=== PATIENT | male | born 1955 | race Caucasian/White ===

== ENCOUNTER → 2018-06-02 | Outpatient (CLI) | payer OTHER, MEDICARE | LOC: M PAIN 13:15 | DX: M47.812 Spondylosis without myelopathy or radiculopathy, cervical region (principal); M79.1 Myalgia; E78.5 Hyperlipidemia, unspecified; K21.9 Gastro-esophageal reflux disease without esophagitis; M19.90 Unspecified osteoarthritis, unspecified site; Z79.899 Other long term (current) drug therapy; Z96.611 Presence of right artificial shoulder joint | CPT/HCPCS: G0463 ==

== ENCOUNTER → 2018-06-30 | Outpatient (CLI) | payer OTHER, MEDICARE ==
[~2018-06-30] MED LIST: BUPIVACAINE HCL 0.25% 30 ML VIAL As Ordered; ISOVUE-M 300 61% 15ML VIAL (Q9967) As Ordered; LIDOCAINE 1% SDV INJ 30 ML VIAL As Ordered; MIDAZOLAM INJ 2 MG/2 ML VIAL (J2250) As Ordered; TRIAMCINOLONE ACETONIDE SUSP 40 MG/ML VIAL (J3301) As Ordered; fentaNYL 100 MCG/2 ML INJECTION (J3010) As Ordered
== END ==
LOC: M PAIN 11:15
DX: M47.812 Spondylosis without myelopathy or radiculopathy, cervical region (principal); E78.5 Hyperlipidemia, unspecified; K21.9 Gastro-esophageal reflux disease without esophagitis; M19.90 Unspecified osteoarthritis, unspecified site; N40.0 Benign prostatic hyperplasia without lower urinary tract symptoms; Z79.899 Other long term (current) drug therapy
CPT/HCPCS: J3301

== ENCOUNTER → 2018-07-16 | Outpatient (CLI) | payer OTHER, MEDICARE | LOC: M PAIN 13:30 | DX: M47.812 Spondylosis without myelopathy or radiculopathy, cervical region (principal); M79.18 Myalgia, other site; E78.5 Hyperlipidemia, unspecified; K21.9 Gastro-esophageal reflux disease without esophagitis; N40.0 Benign prostatic hyperplasia without lower urinary tract symptoms; Z96.653 Presence of artificial knee joint, bilateral; Z79.899 Other long term (current) drug therapy | CPT/HCPCS: G0463 ==

== ENCOUNTER → 2018-07-29 | Outpatient (CLI) | payer OTHER, MEDICARE ==
[~2018-07-29] MED LIST changes: -ISOVUE-M 300 61% 15ML VIAL (Q9967) As Ordered; -LIDOCAINE 1% SDV INJ 30 ML VIAL As Ordered; -MIDAZOLAM INJ 2 MG/2 ML VIAL (J2250) As Ordered; +diazePAM 5 MG TAB As Ordered; -fentaNYL 100 MCG/2 ML INJECTION (J3010) As Ordered; +oxyCODONE 5MG TAB As Ordered
== END ==
LOC: M PAIN 10:45
DX: M79.18 Myalgia, other site (principal); M54.6 Pain in thoracic spine; E78.5 Hyperlipidemia, unspecified; K21.9 Gastro-esophageal reflux disease without esophagitis; M06.9 Rheumatoid arthritis, unspecified; Z96.653 Presence of artificial knee joint, bilateral
CPT/HCPCS: J3301

== ENCOUNTER → 2018-08-13 | Outpatient (CLI) | payer OTHER, MEDICARE | LOC: M PAIN 10:00 | DX: M47.812 Spondylosis without myelopathy or radiculopathy, cervical region (principal); M79.18 Myalgia, other site; E78.5 Hyperlipidemia, unspecified; K21.9 Gastro-esophageal reflux disease without esophagitis; N40.0 Benign prostatic hyperplasia without lower urinary tract symptoms; M19.90 Unspecified osteoarthritis, unspecified site; Z96.653 Presence of artificial knee joint, bilateral; Z79.899 Other long term (current) drug therapy | CPT/HCPCS: G0463 ==

== ENCOUNTER → 2018-09-17 | Outpatient (CLI) | payer OTHER, MEDICARE ==
[~2018-09-17] MED LIST changes: +AVEL1TAB3 PO; -BUPIVACAINE HCL 0.25% 30 ML VIAL As Ordered; +BUPIVACAINE HCL 0.25% 30 ML VIAL As Ordered ONE; +HYDROCODONE OR; +ISOVUE-M 300 61% 15ML VIAL (Q9967) As Ordered ONE; +LIDO5DIS EX; +LIDOCAINE 1% SDV INJ 30 ML VIAL As Ordered ONE; +MIDAZOLAM INJ 2 MG/2 ML VIAL (J2250) As Ordered ONE; +NABU750T OR; +NAPR-49 PO; +PEPC40TA OR; +TRAM50TA2 OR; -TRIAMCINOLONE ACETONIDE SUSP 40 MG/ML VIAL (J3301) As Ordered; +TRIAMCINOLONE ACETONIDE SUSP 40 MG/ML VIAL (J3301) As Ordered ONE; -diazePAM 5 MG TAB As Ordered; +fentaNYL 100 MCG/2 ML INJECTION (J3010) As Ordered ONE; -oxyCODONE 5MG TAB As Ordered; +pennsaid TD
--- NOTE | 2018-09-17 14:25 | REP ---
Limited cervical spine series: Single view. History: Cervical facet block for pain. 36 seconds of fluoroscopy time is reported. Findings: A single last image hold fluoroscopically obtained intraprocedural spot radiograph of the cervical spine documents various needle positions and contrast injections associated with cervical spine facet injection procedure. Electronically Signed by Josh Smith MD 09/17/2018 07:47 P
--- NOTE | 2018-10-07 00:09 | ECWPNPC ---
PATIENT NAME: CALLUM FERRER : 1955 GENDER: MALE VISIT DATE: 09/17/2018 DISCHARGE DATE: 09/17/18 1205 VISIT LOCKED DATE TIME: PHYSICIAN: JONATHON HERNANDES MD RESOURCE: JONATHON HERNANDES MD REASON FOR APPOINTMENT 1. BILATERAL CERVICAL FACET BLOCK AT C7-T1 AND T1-T2 HISTORY OF PRESENT ILLNESS DEPRESSION SCREENING: PHQ-2 IN LAST TWO WEEKS HAVE YOU BEEN BOTHERED BY LITTLE INTEREST OR PLEASURE IN DOING THINGSNO FEELING DOWN, DEPRESSED, OR HOPELESSNO HISTORY OF PRESENT ILLNESS: PAIN THE PATIENT DESCRIBES THE PAIN... FALL RISK SCREENING: SCREENING :NO FALLS IN THE PAST YEAR CURRENT MEDICATIONS TAKING PEPCID 10MG TABLET 1 TABLET P.O. 3-4 X/DAY, NOTES: 09-16-182099 TAKING CUSTOM DO NOT USE TRAMADOL 50 MG TABLET 1 TABS ORALLY EVERY 3-4 HOURS PRN/MDD#8, NOTES: 09-17-182099 TAKING TAMSULOSIN HCL 0.4 MG CAPSULE 1 CAPSULE ORALLY ONCE A DAY, NOTES: 2099 MEDICATION LIST REVIEWED AND RECONCILED WITH THE PATIENT PAST MEDICAL HISTORY HYPERLIPIDEMIA GERD OA ENLARGED PROSTATE NECK AND LOW BACK PAIN ALLERGIES N.K.D.A. SURGICAL HISTORY RIGHT SH REPLACEMENT LEFT SH SCOPE CA CHEST 1999 BILATERAL CARPAL TUNNEL REPAIR HIATAL HERNIA REPAIR LEFT TOTAL KNEE REPLACEMENT 2014 RIGHT TOTAL KNEE REPLACEMENT 2015 FAMILY HISTORY FATHER: MOTHER: 1 SISTER(S) - HEALTHY. 1 SON(S) - HEALTHY. GREW UP IN ORPHANAGE, UNSURE OF FAMILY MEDICAL HISTORYSON-ASTHMA. HOSPITALIZATION/MAJOR DIAGNOSTIC PROCEDURE SURGERIES REVIEW OF SYSTEMS REVIEWED BY: PROVIDER: . CONSTITUTIONAL: ANY CHANGE IN YOUR MEDICAL CONDITION? NO . CHILLS NO . FEVER NO . INFECTION: DO YOU HAVE NEW INFECTIONS? NO . DO YOU HAVE HISTORY OF MRSA? NO . MUSCULOSKELETAL: ANY NEW PATTERNS OF PAIN OR NUMBNESS? NO . GASTROENTEROLOGY: ANY NEW CHANGE IN BOWEL CONTROL? NO . GENITOURINARY: ANY NEW CHANGE IN BLADDER CONTROL? NO . IS THERE A CHANCE YOU COULD BE ? NO . HEMATOLOGY/LYMPH: DO YOU TAKE ANY BLOOD THINNERS? (FOR EXAMPLE- COUMADIN, PLAVIX, AGGRENOX, PLATEL, PRADAXA, OR XARELTO) NO . WHEN WAS YOUR LAST DOSE? DATE: TIME: . NEUROLOGY: HAVE YOU FALLEN IN THE PAST 6 MONTHS? NO . ANY NEW EXTREMITY NUMBNESS OR WEAKNESS? NO . CARDIOLOGY: DO YOU HAVE A PACEMAKER OR DEFIBRILLATOR? NO . RESPIRATORY: HAVE YOU BEEN SICK IN THE PAST WEEK? NO . FEVER NO . FLU LIKE SYMPTOMS? NO . COUGH NO . INTEGUMENTARY: DO YOU HAVE ANY RASHES OR OPEN SORES? NO . ALLERGIC/IMMUNO: ARE YOU ALLERGIC TO SHELLFISH OR IV DYE? NO . ANY NEW ALLERGIES? NO . PSYCHIATRIC: DO YOU HAVE THOUGHTS OF HURTING YOURSELF OR SOMEONE ELSE? NO . ARE YOU ABUSED, NEGLECTED, OR IN AN UNSAFE ENVIRONMENT? NO . ENDOCRINOLOGY: ARE YOU DIABETIC? NO . OTHER: DO YOU NEED ANY PRESCRIPTIONS? NO . IF YES, PLEASE LIST: ____ . ANY NEW PROBLEMS WITH YOUR MEDICATIONS? NO . WHEN DID YOU LAST EAT? ____8 PM LAST NIGHT . WHEN DID YOU LAST DRINK? ____8 PM LAST NIGHT . WHAT DID YOU LAST DRINK? ____WATER . NAME OF PERSON DRIVING YOU HOME? ____LINDA . DO YOU HAVE ANY OTHER QUESTIONS OR CONCERNS NO . VITAL SIGNS WT 192 LBS, HT 72 IN, BMI 26.04 INDEX, BP 127/68 MM HG, HR 116 /MIN, RR 18 /MIN, TEMP 97.6 F, OXYGEN SAT % 93%, SAFE IN ENV? (Y/N) YES, NA INITIALS SC 09:07, REVIEWED BY: KG. ASSESSMENTS SPONDYLOSIS OF CERVICAL REGION WITHOUT MYELOPATHY OR RADICULOPATHY - M47.812 (PRIMARY) PROCEDURES PN CERVICAL FACET BLOCK LOW BILATERAL CERVICAL PRE PROCEDURE DIAGNOSIS CERVICAL SPONDYLOSIS POST PROCEDURE DIAGNOSIS CERVICAL SPONDYLOSIS PROCEDURE BILATERAL C5-6 AND BILATERAL C6-7 CERVICAL THERAPEUTIC FACET BLOCK SURGEON DR. JONATHON HERNANDES WEB ART DIRECTOR NONE ANESTHESIA LOCAL WITH IV SEDATION PRE PROCEDURE NOTE PATIENT WITH A HISTORY OF CHRONIC CERVICAL PAIN. I EVALUATED THE PATIENT AND REVIEWED THE CHART. I WENT OVER THE RISKS, ALTERNATIVES, AND BENEFITS ASSOCIATED WITH THIS PROCEDURE. PATIENT WOULD LIKE TO MOVE FORWARD WITH IV SEDATION DUE TO DISCOMFORT, PAIN AND ANXIETY ASSOCIATED WITH THE PROCEDURE. THE PATIENT WOULD LIKE TO PROCEED AND GAVE CONSENT TO PERFORM THE PROCEDURE. THE PATIENT DENIES UNEXPLAINABLE WEIGHT LOSS, FEVER, CHILLS, OR NEW CHANGES IN URINARY OR BOWEL CONTROL DESCRIPTION OF PROCEDURE THE PATIENT WAS BROUGHT TO THE PROCEDURE ROOM AND PLACED IN THE PRONE POSITION. THE CERVICOTHORACIC AREA WAS CLEANED WITH CHLORAPREP SOLUTION AND DRAPED ASEPTICALLY. THE PROCEDURE WAS DONE UNDER STERILE CONDITIONS. I CHECKED LATERALITY AND THE LEVEL WHERE THE PROCEDURE WAS GOING TO BE PERFORMED WITH THE PATIENT AND THE SUPPORTING STAFF AT THE MOMENT OF THE TIME OUT IN THE PROCEDURE ROOM. UNDER FLUOROSCOPIC GUIDANCE, TARGET POINT WAS SELECTED AT THE RIGHT AND LEFT C5-6 AND RIGHT AND LEFT C6-7. TARGET POINTS WERE SELECTED AFTER LATERAL ROTATION AND TILT OF THE MAGNIFIER OF THE C-ARM. LIDOCAINE 0.5% WAS USED TO NUMB THE SKIN AND THE SUBCUTANEOUS TISSUE BELOW IT. SPINAL NEEDLES, 22-GAUGE, WERE ADVANCED UNDER FLUOROSCOPIC GUIDANCE AND FOLLOWING PATIENT FEEDBACK UNTIL THE TARGETS WERE TOUCHED. THE POSITION OF THE NEEDLES WAS VERIFIED WITH AP AND LATERAL VIEWS. AFTER PROPER POSITION OF THE NEEDLES WAS ACHIEVED, ISOVUE M DYE 30, 0.1 ML WAS INJECTED SHOWING SPREAD OF THE DYE. THEN A SOLUTION OF 0.9 ML OF BUPIVACAINE 0.125% AND KENALOG 10 MG WAS INJECTED AT EACH SITE. PATIENT RECEIVED VERSED 4 MG AND FENTANYL 200 MCG IV DIVIDED DOSES. THERE WAS NO EVIDENCE OF BLOOD, PARESTHESIA OR CEREBROSPINAL FLUID DURING THE PROCEDURE. THE PATIENT WAS SENT TO THE RECOVERY ROOM. THE PATIENT WAS MOVING THE EXTREMITIES AND DOING WELL. THERE WAS NO COMPLICATION DURING THE PROCEDURE. FLUOROSCOPY TIME WAS 36 SECONDS. FACE TO FACE TIME WAS 24 MINUTES POST PROCEDURE NOTE THE PATIENT WILL BE SEEN IN A FOLLOW UP IN THE NEXT FEW WEEKS. INSTRUCTIONS WERE GIVEN, QUESTIONS WERE ANSWERED, AND THE PATIENT EXPRESSED UNDERSTANDING AND AGREED WITH THE PLAN. I, ZEKE BRUSH, DOCUMENTED THE ABOVE INFORMATION ACTING A SCRIBE FOR DR. HERNANDES. I HAVE REVIEWED THE ABOVE DOCUMENT, WRITTEN BY ZEKE BUSTAMANTEIBAngella AND I VERIFY THAT IT IS ACCURATE DIAGNOSTIC IMAGING [facility] FACET BLOCK (PAIN)[id number] PROCEDURE CODES 6045F RADXPS IN END [id number] PXD 66959 INJ PARAVERT F JNT C/T 1 LEV, MODIFIERS: 50 [id number] INJ PARAVERT F JNT C/T 2 LEV, MODIFIERS: 50 00413 MOD SED SAME PHYS/QHP 5/>YRS 47721 MOD SED SAME PHYS/QHP EA DISPOSITION & COMMUNICATION FOLLOW UP 3 WEEKS ELECTRONICALLY SIGNED BY JONATHON HERNANDES MD, MD ON 10/06/2018 AT 05:16 PM EST DISCLAIMER : THIS IS A VISIT SUMMARY EXTRACTED FROM THE [facility]INK CHART. IT IS NOT A COPY OF THE [facility] PROGRESS NOTE. MTDD
== END ==
LOC: M PAIN 08:45
PROVIDERS: ATTEND Anesthesiology
DX: M47.812 Spondylosis without myelopathy or radiculopathy, cervical region (principal); E78.5 Hyperlipidemia, unspecified; K21.9 Gastro-esophageal reflux disease without esophagitis; M19.90 Unspecified osteoarthritis, unspecified site; Z96.653 Presence of artificial knee joint, bilateral; Z79.899 Other long term (current) drug therapy
CPT/HCPCS: 64490; 64491; 99152; 99153; J2250; J3010; J3301; Q9967

== ENCOUNTER 2018-10-02 18:29 | Emergency (ER) | payer OTHER, MEDICARE ==
[~2018-10-02] VITALS: Ht 180.3 cm; Wt 84.1 kg
[~2018-10-02 18:29] MED LIST changes: -AVEL1TAB3 PO; -BUPIVACAINE HCL 0.25% 30 ML VIAL As Ordered ONE; -ISOVUE-M 300 61% 15ML VIAL (Q9967) As Ordered ONE; -LIDOCAINE 1% SDV INJ 30 ML VIAL As Ordered ONE; -MIDAZOLAM INJ 2 MG/2 ML VIAL (J2250) As Ordered ONE; -NAPR-49 PO; -TRIAMCINOLONE ACETONIDE SUSP 40 MG/ML VIAL (J3301) As Ordered ONE; -fentaNYL 100 MCG/2 ML INJECTION (J3010) As Ordered ONE
[2018-10-02 18:31] VITALS: BP 115/64
--- NOTE | 2018-10-02 18:47 | ECGEPIP ---
Stationary ECG Study [facility] - ED Test Date: 2018-10-02 Pat Name: CALLUM FERRER Department: Room: - Gender: M Motion Study Analyst: : 1955 Requested By: Africa Gasca Order Number: [id number] Reading MD: Pillo Ba Measurements Intervals [place] Rate: 120 P: 20 UT: 145 QRS: 8 QRSD: 82 T: 18 QT: 301 QTc: 427 Interpretive Statements SINUS TACHYCARDIA NO PRIORS FOR COMPARISON Electronically Signed On 10-02-2018 18:47:28 EST by Pillo Ba
[2018-10-02 18:58] LABS: BASO % 0.1 % (0.0-1.0); EOS # 0.1 10^3/uL (0.0-0.50); EOS % 0.4 % (0.0-3.0); HEMOGLOBIN 15.6 g/dl (13.5-17.5); LYMPH # 2.6 10^3/uL (1.5-4.5); LYMPH % 21.4 % (24.0-44.0); MEAN CORPUSCULAR HEMOGLOBIN 31.5 pg (27.0-33.0); MEAN CORPUSCULAR HGB CONC 34.7 g/dl (32.0-36.5); MEAN CORPUSCULAR VOLUME 90.7 fl (80.0-96.0); MONO # 1.2 10^3/uL (0.0-0.8); MONO % 10.3 % (0.0-5.0); NEUTROPHILS # 8.1 10^3/uL (1.8-7.7); NEUTROPHILS % 67.5 % (36.0-66.0); PLATELET COUNT, AUTOMATED 255 10^3/uL (150-450); RED BLOOD COUNT 4.96 10^6/uL (4.30-6.10)
[2018-10-02 19:14] LABS: INR 1.16
[2018-10-02 19:28] LABS: ALBUMIN 3.4 GM/DL (3.2-5.2); ALT/SGPT 20 U/L (12-78); BILIRUBIN,DIRECT 0.2 MG/DL (0.0-0.2); BILIRUBIN,TOTAL 1.1 MG/DL (0.2-1.0); BLOOD UREA NITROGEN 17 MG/DL (7-18); CALCIUM LEVEL 9.8 MG/DL (8.8-10.2); CARBON DIOXIDE LEVEL 28 MEQ/L (21-32); CHLORIDE LEVEL 101 MEQ/L (98-107); CK-MB VALUE MASS < 1.0 NG/ML (<3.6); CPK CREATINE PHOSPHOKINASE 24 U/L (39-308); FREE T4 1.17 NG/DL (0.76-1.46); GLOMERULAR FILTRATION RATE 59.2 (>49); GLUCOSE, FASTING 111 MG/DL (70-100); LIPASE 111 U/L (73-393); MB/CK RELATIVE INDEX 4.17 (< OR =4); SODIUM LEVEL 138 MEQ/L (136-145); THYROID STIMULATING HORMONE 0.833 uIU/ML (0.358-3.740); TOTAL PROTEIN 7.4 GM/DL (6.4-8.2); TROPONIN I < 0.02 NG/ML (< 0.10)
[2018-10-02] MEDS ORDERED: ISOVUE-370 76% 100ML VIAL (Q9967) As Ordered ONE (19:29)
--- NOTE | 2018-10-02 19:37 | REP ---
Clinical: Chest pain. Comparison: 05/15/2013. Findings: Mediastinum and cardiac silhouette are normal. Lung vega demonstrate chronic interstitial changes suggesting fibrosis and remains similar to prior examination. Subtle superimposed acute process cannot be excluded. No obvious effusion. No pneumothorax. Skeletal structures stable. Impression: Fibrosis and chronic interstitial changes similar to 2013. Subtle superimposed atelectasis/infiltrate cannot be excluded. Electronically Signed by Bonilla Rangel MD 10/02/2018 07:28 P
--- NOTE | 2018-10-02 19:56 | REP ---
Clinical: Acute chest pain. Technique: Axial contrast enhanced images from the thoracic inlet to the upper abdomen using 100 ml Isovue 370 intravenous contrast material with coronal and sagittal re-formations. Findings: Satisfactory enhancement of the pulmonary vasculature is achieved and no filling defects are identified to suggest pulmonary embolus. Chronic interstitial changes are appreciated. Superimposed bibasilar atelectasis/consolidations, with lingular and right middle lobe infiltrates represent superimposed acute processes. No effusion. No significant adenopathy. Mediastinum demonstrates moderate hiatal hernia. Thoracic aorta without aneurysm or dissection. Atherosclerotic changes to the coronary arteries noted without cardiomegaly or pericardial effusion. Musculoskeletal structures are intact. Impression: No evidence for pulmonary embolus. Multifocal atelectasis/consolidations and infiltrates. Electronically Signed by Bonilla Rangel MD 10/02/2018 07:48 P
[2018-10-02] MEDS ORDERED: AVEL1TAB3 PO (20:22)
[2018-10-02] MEDS ORDERED: NAPR-50 PO (20:22)
--- NOTE | 2018-10-03 07:34 | ED PDOC ---
Post-Departure Follow-Up radiology re[ort faxed to Africa Pepe MD Oct 03, 2018 07:34
== END 2018-10-02 20:53 | disposition home or self-care (01) ==
LOC: M ED 18:29
DX: J98.11 Atelectasis (principal); R07.89 Other chest pain; Z86.711 Personal history of pulmonary embolism; Z79.899 Other long term (current) drug therapy; Z88.5 Allergy status to narcotic agent; Z88.8 Allergy status to other drugs, medicaments and biological substances
CPT/HCPCS: 36415; 71045; 71275; 80048; 80076; 82550; 82553; 83690; 84439; 84443; 84484; 85025; 85610; 85730; 93005; 93041; 94760; 99284; Q9967

== ENCOUNTER → 2018-10-13 | Outpatient (CLI) | payer OTHER, MEDICARE ==
[~2018-10-13] MED LIST changes: +AVEL1TAB3 PO; +ELIQ5TAB PO; +FLOM0.4C39 PO; +NAPR-50 PO; +TRAM50TA2 PO
--- NOTE | 2018-11-02 01:18 | ECWPNPC ---
PATIENT NAME: CALLUM FERRER : 1955 GENDER: MALE VISIT DATE: 10/13/2018 DISCHARGE DATE: 10/13/18 1556 VISIT LOCKED DATE TIME: PHYSICIAN: LAWSON CHEUNG RESOURCE: LAWSON CHEUNG REASON FOR APPOINTMENT 1. SW PT- POST PROC HISTORY OF PRESENT ILLNESS HISTORY OF PRESENT ILLNESS: HERE FOR F/U OF CHRONIC NECK PAIN AND INTERMITTENT ARM AND HAND PARATHESIAS.HAD CERVICAL FACET BLOCK ON C5/6-C6/7 THERAPEUTIC.REPORTING >50% IMPROVEMENT IN PAIN THAT CONTINUES TODAY.HAD SOME DIFFICULTY WITH IV SEDATION AT LAST PROCEDURE.DR. HERNANDES CAME IN TO SEE PATIENT.HE IS SUGGESTING OR FOR FUTURE PROCEDURES. PAIN THE PATIENT DESCRIBES THE PAIN... FALL RISK SCREENING: SCREENING :NO FALLS IN THE PAST YEAR CURRENT MEDICATIONS TAKING PEPCID 10MG TABLET 1 TABLET P.O. 3-4 X/DAY, NOTES: [id number] TAKING CUSTOM DO NOT USE TRAMADOL 50 MG TABLET 1 TABS ORALLY EVERY 3-4 HOURS PRN/MDD#8, NOTES: 09-17-182099 TAKING TAMSULOSIN HCL 0.4 MG CAPSULE 1 CAPSULE ORALLY ONCE A DAY, NOTES: 2099 MEDICATION LIST REVIEWED AND RECONCILED WITH THE PATIENT PAST MEDICAL HISTORY HYPERLIPIDEMIA GERD OA ENLARGED PROSTATE NECK AND LOW BACK PAIN PNEUMONIA 09/22 ALLERGIES N.K.D.A. SURGICAL HISTORY RIGHT SH REPLACEMENT LEFT SH SCOPE CA CHEST 1999 BILATERAL CARPAL TUNNEL REPAIR HIATAL HERNIA REPAIR LEFT TOTAL KNEE REPLACEMENT 2014 RIGHT TOTAL KNEE REPLACEMENT 2015 FAMILY HISTORY FATHER: MOTHER: 1 SISTER(S) - HEALTHY. 1 SON(S) - HEALTHY. GREW UP IN ORPHANAGE, UNSURE OF FAMILY MEDICAL HISTORYSON-ASTHMA. SOCIAL HISTORY GENERAL: TOBACCO USE ARE YOU A:NONSMOKER ALCOHOL SCREENING DID YOU HAVE A DRINK CONTAINING ALCOHOL IN THE PAST YEAR?NO POINTS0 INTERPRETATIONNEGATIVE RECREATIONAL DRUG USE DRUG USE?NO CAFFEINE CAFFEINE USE?YES 1 CUP TEA/DAY MORMON [id number] NONE LANGUAGE LANGUAGES SPOKEN:TURKISH LEARNING BARRIERS / SPECIAL NEEDS BARRIERS TO LEARNING?NO HEARING IMPAIRED?NO VISION IMPAIRED?NO COGNITIVELY IMPAIRED?NO READINESS TO LEARN?YES LEARNING PREFERENCES?NO LEARNING CAPABILITIES PRESENT?YES EMOTIONAL BARRIERS?NO SPECIAL DEVICES?NO RECONSTRUCTIVE DENTIST NEEDED?NO DOMESTIC VIOLENCE DO YOU FEEL SAFE IN YOUR ENVIRONMENT?YES OCCUPATION: RETIRED. DIET: LOVES MILK, REGULAR. NEW PATIENT PAIN DIARY FROM 0-10, WHAT LEVEL IS YOUR PAIN TODAY?3 PAIN CLINIC PFS, CLERGY, PUBLIC HEALTH REFERRALS PFS REFERRAL NEEDED?NO CLERGY REFERRAL NEEDED?NO PUBLIC HEALTH REFERRAL NEEDED?NO HAS THE PATIENT BEEN EDUCATED REGARDING HIS/HER PLAN OF CARE?YES HAS THE PATIENT BEEN EDUCATED REGARDING PAIN, THE RISK FOR PAIN, THE IMPORTANCE OF EFFECTIVE PAIN MANAGEMENT, AND THE PAIN ASSESSMENT PROCESS?YES ADVANCE DIRECTIVE ADVANCE DIRECTIVE DISCUSSED WITH PATIENT:YES PT DOES NOT HAVE ANY ADVANCED DIRECTIVES, AND HE DECLINES INFORMATION ASSISTANCE ON HCP AT THIS TIME. 10/13/17 .REVIEWED 06/02/18 1355 LAS06/30/18 1400 REVIEWED WITH PT. ADREVIEWED 07/16/18 1400 LASREVIEWED WITH PT 08/13/18 1039 BVREVIEWED WITH PT 10/13/18 1500 LAS. HOSPITALIZATION/MAJOR DIAGNOSTIC PROCEDURE SURGERIES REVIEW OF SYSTEMS REVIEWED BY: PROVIDER: LAWSON AVALOS . CONSTITUTIONAL: ANY CHANGE IN YOUR MEDICAL CONDITION? NO . CHILLS NO . FEVER NO . INFECTION: DO YOU HAVE NEW INFECTIONS? PT REPORTS HE HAD PNEUMONIA/CHOSTOCHONDRITIS AFTER THE HOLIDAYS, RESOLVED WITH COURSE OF LEVAQUIN . DO YOU HAVE HISTORY OF MRSA? NO . MUSCULOSKELETAL: ANY NEW PATTERNS OF PAIN OR NUMBNESS? PT HAD BILATERAL CERVICAL FACET BLOCK 09/17, REPORTS GOOD RESULTS, BUT IS STARTING TO COME BACK, NOW RATES PAIN A 2 . GASTROENTEROLOGY: ANY NEW CHANGE IN BOWEL CONTROL? NO . GENITOURINARY: ANY NEW CHANGE IN BLADDER CONTROL? NO . IS THERE A CHANCE YOU COULD BE ? NO . HEMATOLOGY/LYMPH: DO YOU TAKE ANY BLOOD THINNERS? (FOR EXAMPLE- COUMADIN, PLAVIX, AGGRENOX, PLATEL, PRADAXA, OR XARELTO) NO . WHEN WAS YOUR LAST DOSE? DATE: TIME: . NEUROLOGY: HAVE YOU FALLEN IN THE PAST 6 MONTHS? PT REPORTS HE FELL HERE AFTER HIS LAST PROCEDURE, DENIES INJURY . ANY NEW EXTREMITY NUMBNESS OR WEAKNESS? NO . CARDIOLOGY: DO YOU HAVE A PACEMAKER OR DEFIBRILLATOR? NO . RESPIRATORY: HAVE YOU BEEN SICK IN THE PAST WEEK? YES PT REPORTS RECENT PNEUMONIA, TREATED WITH ANTIBIOTICS . FEVER NO . FLU LIKE SYMPTOMS? NO . COUGH NO . INTEGUMENTARY: DO YOU HAVE ANY RASHES OR OPEN SORES? NO . ALLERGIC/IMMUNO: ARE YOU ALLERGIC TO SHELLFISH OR IV DYE? NO . ANY NEW ALLERGIES? NO . PSYCHIATRIC: DO YOU HAVE THOUGHTS OF HURTING YOURSELF OR SOMEONE ELSE? NO . ARE YOU ABUSED, NEGLECTED, OR IN AN UNSAFE ENVIRONMENT? NO . ENDOCRINOLOGY: ARE YOU DIABETIC? NO . OTHER: DO YOU NEED ANY PRESCRIPTIONS? NO . IF YES, PLEASE LIST: ____ . ANY NEW PROBLEMS WITH YOUR MEDICATIONS? NO . WHEN DID YOU LAST EAT? ____ . WHEN DID YOU LAST DRINK? ____ . WHAT DID YOU LAST DRINK? ____ . NAME OF PERSON DRIVING YOU HOME? ____ . VITAL SIGNS WT 183.0 LBS, HT 72 IN, BMI 24.82 INDEX, BP 104/78 MM HG, HR 97%, RR 18 /MIN, TEMP 97.1 F, OXYGEN SAT % 97%, NA INITIALS AW 1452. EXAMINATION GENERAL EXAMINATION: PSYCHAFFECT FLAT, ALERT , ORIENTED X 3 . LUNGS:CLEAR TO AUSCULTATION BILATERALLY. HEART:HEART RATE REGULAR. MUSCULOSKELETAL:POINT TENDERNESS OVER BASE OF C-SPINE AND TRAPS BILAT.. NECK PAIN WITH NECK EXTENSION AND RAISING ARMS ABOVE SHOULDER HEIGHT. ALLIANCE MANAGER STRENTH EQUAL AND STRONG. . ASSESSMENTS SPONDYLOSIS OF CERVICAL REGION WITHOUT MYELOPATHY OR RADICULOPATHY - M47.812 (PRIMARY) TREATMENT SPONDYLOSIS OF CERVICAL REGION WITHOUT MYELOPATHY OR RADICULOPATHY NOTES: CONTINUE WITH HOME STRETCHING/EXCERSISE. PROCEDURE CODES FA211 ESTABILISHED PATIENT [facility] CHARGE DISPOSITION & COMMUNICATION FOLLOW UP 2 MONTHS ELECTRONICALLY SIGNED BY BAILEY RAMIREZ ON 11/01/2018 AT 12:08 PM EST DISCLAIMER : THIS IS A VISIT SUMMARY EXTRACTED FROM THE [employer] CHART. IT IS NOT A COPY OF THE [employer] PROGRESS NOTE. LIYA
== END ==
LOC: M PAIN 14:45
PROVIDERS: ATTEND Nurse Practitioner Family
DX: M47.812 Spondylosis without myelopathy or radiculopathy, cervical region (principal); G89.29 Other chronic pain; E78.5 Hyperlipidemia, unspecified; K21.9 Gastro-esophageal reflux disease without esophagitis; M19.90 Unspecified osteoarthritis, unspecified site; Z79.899 Other long term (current) drug therapy; Z96.653 Presence of artificial knee joint, bilateral

== ENCOUNTER 2018-10-29 11:46 | Inpatient (IN) | payer MEDICARE, MEDICAID ==
[~2018-10-29] VITALS: Ht 177.8 cm; Wt 82.5 kg
[~2018-10-29 11:46] MED LIST changes: -ELIQ5TAB PO; -FLOM0.4C39 PO; -TRAM50TA2 PO
[2018-10-29 12:23] LABS: BASO % 0.1 % (0.0-1.0); EOS % 0.1 % (0.0-3.0); HEMATOCRIT 44.5 % (42.0-52.0); HEMOGLOBIN 15.2 g/dl (13.5-17.5); LYMPH # 2.1 10^3/uL (1.5-4.5); LYMPH % 15.1 % (24.0-44.0); MEAN CORPUSCULAR HEMOGLOBIN 30.5 pg (27.0-33.0); MEAN CORPUSCULAR HGB CONC 34.2 g/dl (32.0-36.5); MEAN CORPUSCULAR VOLUME 89.4 fl (80.0-96.0); MONO # 1.4 10^3/uL (0.0-0.8); MONO % 9.6 % (0.0-5.0); NEUTROPHILS # 10.6 10^3/uL (1.8-7.7); NEUTROPHILS % 74.6 % (36.0-66.0); PLATELET COUNT, AUTOMATED 372 10^3/uL (150-450); RED BLOOD COUNT 4.98 10^6/uL (4.30-6.10); WHITE BLOOD COUNT 14.2 10^3/uL (4.0-10.0)
[2018-10-29 12:33] LABS: VENOUS BASE EXCESS 1.8 (-2.0-2.0); VENOUS HCO3 27.5 MEQ/L (23.0-27.0); VENOUS PARTIAL PRESSURE CO2 46.5 mmHg (38.0-50.0); VENOUS PARTIAL PRESSURE O2 47.4 mmHg (30.0-50.0); VENOUS PH 7.389 UNITS (7.330-7.430); VENOUS STANDARD HCO3 25.7 MEQ/L; VENOUS TOTAL CO2 28.9 MEQ/L (24.0-28.0)
[2018-10-29 12:40] LABS: INR 1.31; PROTHROMBIN TIME 16.5 SECONDS (12.1-14.4)
--- NOTE | 2018-10-29 12:54 | REP ---
Chest one-view HISTORY: Cough Comparison: 10/02/2018 An increase in interstitial markings is present in the lungs consistent with chronic interstitial fibrosis. The heart is normal in size. The pulmonary vasculature is normal in appearance. The patient is status post right shoulder arthroplasty. Impression: Chronic interstitial fibrosis. Electronically Signed by Dominick Silva MD 10/29/2018 12:45 P
[2018-10-29 13:02] LABS: ALT/SGPT 12 U/L (12-78); BILIRUBIN,DIRECT 0.2 MG/DL (0.0-0.2); BILIRUBIN,TOTAL 0.7 MG/DL (0.2-1.0); BLOOD UREA NITROGEN 12 MG/DL (7-18); CALCIUM LEVEL 9.6 MG/DL (8.8-10.2); CARBON DIOXIDE LEVEL 27 MEQ/L (21-32); CHLORIDE LEVEL 98 MEQ/L (98-107); CK-MB VALUE MASS < 1.0 NG/ML (<3.6); CPK CREATINE PHOSPHOKINASE 24 U/L (39-308); CREATININE FOR GFR 1.45 MG/DL (0.70-1.30); GLOMERULAR FILTRATION RATE 52.2 (>49); GLUCOSE, FASTING 148 MG/DL (70-100); MB/CK RELATIVE INDEX 4.17 (< OR =4); NT-PRO BNP 147 PG/ML (<125); POTASSIUM SERUM 4.1 MEQ/L (3.5-5.1); SODIUM LEVEL 136 MEQ/L (136-145); THYROID STIMULATING HORMONE 0.955 uIU/ML (0.358-3.740); TOTAL PROTEIN 7.7 GM/DL (6.4-8.2); TROPONIN I < 0.02 NG/ML (< 0.10)
[2018-10-29] MEDS ORDERED: NS 1,000 ML IV ONE ×2 (13:15→13:45)
[2018-10-29 15:09] LABS: D-DIMER QUANT > 4000 ng/ml (<500)
[2018-10-29] MEDS ORDERED: ISOVUE-370 76% 100ML VIAL (Q9967) As Ordered ONE (15:25)
[2018-10-29] MEDS ORDERED: TRAM50TA2 PO (15:32)
[2018-10-29] MEDS ORDERED: FLOM0.4C39 PO (15:32)
[2018-10-29] MEDS ORDERED: HEPARIN SOD (PORCINE) 5000 UNITS/ML VIAL IV ONE (16:00)
[2018-10-29] MEDS ORDERED: HEPARIN SOD (PORCINE) 5000 UNITS/ML VIAL IV PRN (16:00)
[2018-10-29] MEDS ORDERED: HEPARIN DRIP 25,000 UNITS in APPROPRIATE DILUENT 1 EA IV SCH (16:00)
[2018-10-29 16:20] LABS: PARTIAL THROMBOPLASTIN TIME 33.1 SECONDS (25.4-37.6)
[2018-10-29] MEDS ORDERED: NORCO, ANEXSIA 5/325MG TABLET (HYDROcodone/ACETAMINOPHEN) PO ONE ×2 (16:30→22:45)
--- NOTE | 2018-10-29 16:51 | REP ---
CT pulmonary angiogram: With IV contrast. History: Tachycardia and shortness of breath. Rule out pulmonary embolus. Comparison studies: Comparison CT study October 02, 2018. Contrast dose: 75 ML of Isovue [address] technique: Helical scanning is acquired and overlapping 1.5 mm and contiguous 3 mm axial images are reformatted. In addition, maximum intensity projection and multiplanar re-formation images are generated in sagittal and coronal imaging projections. CT pulmonary angiographic findings: There is good opacification of the pulmonary arterial tree. There are multiple filling defects in the lower and upper lobe pulmonary arterial tree consistent with pulmonary embolism on today's CT images. No central embolus is seen. This is a new finding. There is mild reflux of contrast opacified blood into the vena cava in the hepatic segment which may reflect right heart strain. The thoracic aorta enhances homogeneously without evidence of aneurysm or dissection. There is some vascular calcification in the left coronary artery distribution. There is subsegmental atelectatic change in the lower lobes bilaterally. There is an infiltrate in the posterior segment of the right upper lobe which is a peripheral pleural-based question right upper lobe pulmonary infarction. There is a small sliver of pleural fluid suspected bilaterally. There are surgical clips at the GE junction and there is evidence of a small sliding-type hiatal hernia. Visualized upper abdominal structures are unremarkable. No bony destructive lesion is seen. The patient is status post right humeral head replacement. Impression: Positive study for multiple bilateral pulmonary artery emboli. Possible right upper lobe pulmonary infarction. Contrast opacified blood refluxes into the intrahepatic vena cava which may reflect some degree of right heart strain. Hiatal hernia. Findings were telephoned to the referring provider at the time of the study. Electronically Signed by Josh Smith MD 10/29/2018 05:29 P
[2018-10-29] MEDS ORDERED: ACETAMINOPHEN TAB 650MG DOSE (2X325MG) PO PRN (17:00)
[2018-10-29] MEDS ORDERED: traMADol 50 MG TAB PO PRN ×2 (17:00→23:00)
[2018-10-29 21:00] VITALS: O2SAT 95
--- NOTE | 2018-10-29 21:01 | HPE ---
DATE OF ADMISSION: 10/29/2018 PRIMARY CARE PROVIDER: In [facility]. ATTENDING PHYSICIAN: Dr. Bangura CHIEF COMPLAINT: Chest pain. HISTORY OF PRESENT ILLNESS: The patient is a 63-year-old male who presented to the hospital for chest pain. History is provided by himself as well as his , who is with him in the emergency room (ER). Patient states he had a history of deep vein thrombosis (DVT) in his left lower extremity in 2013 after knee replacement. He was treated with a blood thinner for a few months and then stopped. He states he does not smoke cigarettes. There is no family history of blood clots. Back in 10/02/2018 he presented to the ER here for chest pain. His workup in the ER demonstrated he may have pneumonia. He was discharged home with oral prednisone as well as levofloxacin for treatment on pneumonia. He states after he took medications he was feeling a little bit better initially; however, his chest pain came back and was getting worse gradually. That is why he decided to come to the ER for followup evaluation today. Regarding his chest pain, it is located in the bilateral low chest wall and the worst pain is about 6/10 in severity chest pain. Any movement or coughing makes the pain worse. No radiation. In the ER, his workup demonstrated he has bilateral pulmonary embolism (PE) per CT angiogram of chest, so medicine service was called for admission. REVIEW OF SYSTEMS: Positive for low-grade fever but no headache, no blurry vision, no nausea, no vomiting. Positive pleuritic chest pain. Positive cough without phlegm. No abdominal pain. No diarrhea or constipation. No dysuria. No tingling, numbness, or weakness in the arms or lower extremities. All other systems reviewed were negative. PAST MEDICAL HISTORY: 1. Left lower extremity DVT in 2013. Happened after left knee replacement. 2. Chronic lower back pain. 3. Abdominal wall sebaceous cancer, status post surgery. 4. BPH. PAST SURGICAL HISTORY: 1. Bilateral knee replacement. 2. Bilateral carpal tunnel surgery. 3. Status post fundoplication for a hiatal hernia. 4. Bilateral shoulder surgery. ALLERGIES: No known drug allergies. MEDICATIONS: - Flomax 4 mg by mouth daily - tramadol as needed for pain SOCIAL HISTORY: Denies tobacco use. Denies alcohol abuse. Denies illicit drug abuse. He is full code. Is living with at home. FAMILY HISTORY: No family history of blood clots. PHYSICAL EXAMINATION: VITAL SIGNS: Temperature 98.3, heart rate 101, respiratory rate 18, blood pressure 111/75, oxygen saturation is 95% on 2 liters oxygen supplement. GENERAL: He is awake, alert, oriented times three. He is not in acute distress. HEENT: Atraumatic. Pupils equal, round, reactive to light. No jaundice. Extraocular muscles intact. Ears, nose, throat normal. Mouth: Mucosa dry. NECK: No jugular venous distention (JVD). No bruits. LUNGS: Clear. No wheezing. No crackles. HEART: S1, S2, regular. No murmur. Mild tachycardia. ABDOMEN: Soft. Bowel sounds positive. Nontender. Lower extremities: No edema, bilateral lower extremities. NEUROLOGIC: Nonfocal. SKIN: No rash. PSYCHOLOGIC: No acute psychosis. DIAGNOSTIC LABORATORIES: CBC with differential: WBC 14, hemoglobin and hematocrit 15/44, platelets 372. Sodium 136, potassium 4.1, chloride 98, bicarbonate 27, BUN 12, creatinine 1.4, glucose 148. Chest CT angiogram showed bilateral PE. IMPRESSION: 1. Acute pulmonary failure with hypoxia. 2. Acute bilateral pulmonary embolism. 3. History of BPH. 4. History of chronic low back pain. PLAN: Patient will be admitted to the progressive care unit (PCU). Will continue heparin drip. Will schedule echocardiogram. Will discuss with patient regarding further anticoagulant treatment plan.
[2018-10-29 21:24] VITALS: BP 138/91
[2018-10-29] MEDS ORDERED: KETOROLAC 30 MG/ML VIAL (J1885) IV PRN (22:00)
[2018-10-29 23:00] VITALS: O2SAT 97
[2018-10-29 23:58] VITALS: BP 105/65
[2018-10-30] VITALS (15 sets, daily range): BP systolic 102–132; BP diastolic 60–81; O2SAT 89–96
[2018-10-30 05:54] LABS: INR 1.45; PARTIAL THROMBOPLASTIN TIME 52.8 SECONDS (25.4-37.6); PROTHROMBIN TIME 17.9 SECONDS (12.1-14.4)
[2018-10-30 05:55] LABS: BLOOD UREA NITROGEN 10 MG/DL (7-18); CALCIUM LEVEL 8.8 MG/DL (8.8-10.2); CARBON DIOXIDE LEVEL 26 MEQ/L (21-32); CHLORIDE LEVEL 103 MEQ/L (98-107); CREATININE FOR GFR 1.02 MG/DL (0.70-1.30); GLOMERULAR FILTRATION RATE > 60.0 (>49); GLUCOSE, FASTING 89 MG/DL (70-100); POTASSIUM SERUM 4.2 MEQ/L (3.5-5.1); SODIUM LEVEL 137 MEQ/L (136-145)
[2018-10-30 06:00] LABS: HEMATOCRIT 37.2 % (42.0-52.0); MEAN CORPUSCULAR HEMOGLOBIN 30.3 pg (27.0-33.0); MEAN CORPUSCULAR HGB CONC 33.3 g/dl (32.0-36.5); PLATELET COUNT, AUTOMATED 295 10^3/uL (150-450); RED BLOOD COUNT 4.09 10^6/uL (4.30-6.10); WHITE BLOOD COUNT 13.2 10^3/uL (4.0-10.0)
[2018-10-30 06:04] LABS: HEMOGLOBIN 12.4 g/dl (13.5-17.5)
[2018-10-30] MEDS: HEPARIN SOD (PORCINE) 5000 UNITS/ML VIAL IV PRN (06:29)
[2018-10-30] MEDS: TAMSULOSIN 0.4 MG CAP PO SCH (08:34)
[2018-10-30] MEDS: PERCOCET 5MG/325MG TAB PO PRN ×2 (09:44→18:53)
[2018-10-30 09:56] LABS: CK-MB VALUE MASS < 1.0 NG/ML (<3.6); CPK CREATINE PHOSPHOKINASE 27 U/L (39-308); TROPONIN I < 0.02 NG/ML (< 0.10)
--- NOTE | 2018-10-30 10:31 | REP ---
CT thoracic spine without contrast. HISTORY: Back pain COMPARISON : None There is no acute fracture or subluxation. There is no disc bulge or herniation. Facets hypertrophy is present at the T9-10 through T12-L1 levels. The neural foramina are patent. There is loss of height of several mid and lower thoracic intervertebral discs. Anterior osteophytes are present in the mid and lower thoracic spine. Parenchymal densities are present in the lungs. IMPRESSION: 1. Degenerative change as described above. 2. There are parenchymal densities in the lungs. Please refer to CT angio chest date 10/29/2018. Electronically Signed by Dominick Silva MD 10/30/2018 10:23 A
--- NOTE | 2018-10-30 10:38 | ECGEPIP ---
Stationary ECG Study [facility] - ED Test Date: 2018-10-29 Pat Name: CALLUM FERRER Department: Room: - Gender: M Credit Front Office Developer: : 1955 Requested By: Africa Gasca Order Number: [id number] Reading MD: Africa Gasca Measurements Intervals [place] Rate: 126 P: 76 FL: 172 QRS: 40 QRSD: 84 T: 48 QT: 299 QTc: 434 Interpretive Statements SINUS TACHYCARDIA INDETERMINATE AXIS ABNORMAL RHYTHM ECG SIMILAR 10/02/18 Electronically Signed On 10-30-2018 10:37:53 EST by Africa Gasca
--- NOTE | 2018-10-30 10:52 | REP ---
Duplex extremity venous ultrasound: Bilateral lower extremity. History: Rule out DVT. Findings: The deep veins are anechoic and fully compressible from the groin to the popliteal fossa in the left and right lower extremity. Color flow imaging is homogeneous. Spectral Doppler interrogation demonstrates intact respiratory variation in flow and normal manual augmentation of flow. There is no evidence of deep vein thrombosis. Impression: Negative bilateral lower extremity duplex venous ultrasound. No evidence of deep vein thrombosis. Electronically Signed by Josh Smith MD 10/30/2018 10:44 A
[2018-10-30] MEDS: HEPARIN DRIP 25,000 UNITS in APPROPRIATE DILUENT 1 EA IV SCH (12:00)
[2018-10-30 13:00] LABS: INR 1.54; PROTHROMBIN TIME 18.7 SECONDS (12.1-14.4)
[2018-10-30 13:02] LABS: PARTIAL THROMBOPLASTIN TIME 66.9 SECONDS (25.4-37.6)
--- NOTE | 2018-10-30 14:18 | IPNPDOC ---
Text Note Date of Service The patient was seen on 10/30/18. NOTE Subjective: Patient states he has left mid back pain/thoracic region pain that started 4 days ago. He states his nonradiating. Denies any weakness in his extremities. States has chronic lower back pain. Objective: Vitals: (see below) General: No acute distress, laying comfortably in bed. HEENT: Moist mucous membranes. Neck: No JVD or lymphadenopathy Cardiac: Tachycardic. Regular rhythm., No murmurs Pulm: Diminished breath sounds at the bases b/l. No wheezing, rhonchi Abd: NT/ND + BS Ext: No edema or cyanosis Thoracic region tender to palpation more so on the left side. Labs (see below) Images: CTA chest on 10/29/18 Impression: Positive study for multiple bilateral pulmonary artery emboli. Possible right upper lobe pulmonary infarction. Contrast opacified blood refluxes into the intrahepatic vena cava which may reflect some degree of right heart strain. Hiatal hernia. CT thoracic spine on 10/30/18 There is no acute fracture or subluxation. There is no disc bulge or herniation. Facets hypertrophy is present at the T9-10 through T12-L1 levels. The neural foramina are patent. There is loss of height of several mid and lower thoracic intervertebral discs. Anterior osteophytes are present in the mid and lower thoracic spine. Parenchymal densities are present in the lungs. IMPRESSION: 1. Degenerative change as described above. 2. There are parenchymal densities in the lungs. Please refer to CT angio chest date 10/29/2018. Assessment/Plan 1. Acute hypoxic respiratory failure secondary to acute pulmonary embolism bilaterally, with likely right-sided heart strain. Patient initially presented hypotensive, tachycardic, hypoxic. Rate is better controlled, and the patient is no longer hypotensive. Status post IV fluids. On heparin drip. Echocardiogram pending. Given the extent of the pulmonary embolism, and questionable pulmonary infarction, Dr. Simms was consulted. We'll continue to monitor in PCU. states that she prefers Eliquis for anticoagulation and the patient is ready to be transitioned. 2. Left-sided thoracic/back pain - CT thoracic spine (see above). The pain may very well be secondary to the pulmonary embolism, however persistence, will obtain an MRI. Percocet and lidocaine patch for pain control. 3. History of chronic lower back pain. Strength intact. No alarming symptoms. 4. History of BPH continue Flomax 5. Acute kidney injury. Resolved. Status post IV fluids. Avoid nephrotoxins. 6. Leukocytosis likely secondary to #1. Continue to monitor. Afebrile. Blood cultures pending. DVT prophy: On heparin drip Overall prognosis guarded. VS,Fishbone, I+O VS, Fishbone, I+O Laboratory Tests 10/30/18 04:48 Red Blood Count 4.09 L, Mean Corpuscular Volume 91.0, Mean Corpuscular Hemoglobin 30.3, Mean Corpuscular Hemoglobin Concent 33.3, Red Cell Distribution Width 11.9, Calcium Level 8.8, Total Creatine Kinase 27 L Vital Signs Date Time Temp Pulse Resp B/P (MAP) Pulse Ox O2 Delivery O2 Flow Rate FiO2 10/30/18 10:14 20 10/30/18 08:00 98.7 126 116/70 (85) 97 Room Air 10/30/18 06:00 2.0 I&O- Last 24 Hours up to 6 AM 10/30/18 06:00 Intake Total 2180 ml Balance 2180 ml ARLETTE DIAZ MD Oct 30, 2018 14:18
[2018-10-30] MEDS ORDERED: LIDOCAINE 5% (LIDODERM) PATCH TD ONE (14:30)
--- NOTE | 2018-10-30 16:18 | ECHO ---
DATE OF PROCEDURE: 10/30/2018 REFERRING PHYSICIAN: Alan Bangura MD PATIENT LOCATION: Room 3212 REASON FOR ECHOCARDIOGRAM: Shortness of breath, acute pulmonary embolism. 2D MEASUREMENTS: IVS: 1.0 cm LV: 4.0 cm LVPW: 1.0 cm LA: 3.1 cm Aorta: 3.3 cm DOPPLER MEASUREMENTS: Peak velocity across the aortic valve: 1.2 m/s Peak velocity across the LVOT: 0.84 m/s Mitral E: 0.51, Mitral A: 0.77, with a ratio of 0.7 IMPRESSION: 1. Technically limited study due to poor acoustic window. 2. Left ventricular systolic function appeared to be normal. Assessment of the left ventricular diastolic function appeared to be normal, manifested by abnormal relaxation. 3. No significant valvular abnormalities detected. 4. No pericardial effusion noted in limited views. 5. Cardiac valves were not well visualized.
[2018-10-30] MEDS ORDERED: **NOTE PATIENT COMMENT** MISC XX SCH (21:00)
[2018-10-30] MEDS: **NOTE PATIENT COMMENT** MISC XX SCH (21:16)
[2018-10-31] VITALS (24 sets, daily range): BP systolic 108–120; BP diastolic 67–76; O2SAT 91–95
[2018-10-31] MEDS: PERCOCET 5MG/325MG TAB PO PRN ×3 (01:24→16:31)
[2018-10-31 07:16] LABS: HEMATOCRIT 35.9 % (42.0-52.0); HEMOGLOBIN 12.2 g/dl (13.5-17.5); MEAN CORPUSCULAR VOLUME 88.4 fl (80.0-96.0); PLATELET COUNT, AUTOMATED 299 10^3/uL (150-450); RED BLOOD COUNT 4.06 10^6/uL (4.30-6.10); WHITE BLOOD COUNT 10.9 10^3/uL (4.0-10.0)
[2018-10-31 07:44] LABS: BLOOD UREA NITROGEN 11 MG/DL (7-18); CALCIUM LEVEL 8.5 MG/DL (8.8-10.2); CARBON DIOXIDE LEVEL 27 MEQ/L (21-32); CHLORIDE LEVEL 102 MEQ/L (98-107); CREATININE FOR GFR 1.02 MG/DL (0.70-1.30); GLOMERULAR FILTRATION RATE > 60.0 (>49); GLUCOSE, FASTING 100 MG/DL (70-100); SODIUM LEVEL 138 MEQ/L (136-145)
[2018-10-31] MEDS: TAMSULOSIN 0.4 MG CAP PO SCH (08:14)
[2018-10-31] MEDS: LIDOCAINE 5% (LIDODERM) PATCH TD SCH (08:15)
[2018-10-31] MEDS: HEPARIN DRIP 25,000 UNITS in APPROPRIATE DILUENT 1 EA IV SCH (09:52)
[2018-10-31] MEDS: **NOTE PATIENT COMMENT** MISC XX SCH (10:30)
--- NOTE | 2018-10-31 10:33 | REP ---
Clinical: Frequent falls . Comparison: 12/05/2009 . Findings: The ventricles, sulci, and cisterns are normal in position and appearance. Del Real-white differentiation is maintained. No acute intracranial hemorrhage, mass/mass effect, pathology or trauma/injury. No evidence for acute infarction. No extra-axial fluid collection. Calvarium is intact. Paranasal sinuses and mastoid air cells are clear. Impression: Normal noncontrast head CT. No evidence for acute intracranial pathology or trauma/injury. Electronically Signed by Bonilla Rangel MD 10/31/2018 10:25 A
--- NOTE | 2018-10-31 11:34 | CR ---
DATE OF CONSULTATION: 10/31/2018 REASON FOR CONSULTATION: Pulmonary emboli. HISTORY OF THE PRESENT ILLNESS: Mr. Hopson is a 63-year-old gentleman who has had a history of embolic events in the past. He reports that these were generally after surgical issues for his knees. He was seen in the emergency room (ER) several weeks ago for similar complaints of chest pain. Reportedly workup at that point in time was unremarkable for clot. His symptoms, however, persisted, and he re-presented 2 days ago. He was found to have bilateral pulmonary emboli and what appears to be a pulmonary infarct of the right upper lobe. He is having significant pain. He was placed on empiric antimicrobials. He is currently fully anticoagulated on heparin. He is not known to have chronic obstructive lung disease. Significant other states a history of some mild fibrosis, but he takes no respiratory medications. ALLERGIES: Listed as none. MEDICATIONS AT HOME: Flomax and tramadol. PAST MEDICAL HISTORY: Significant for previous left lower extremity deep vein thrombosis (DVT) after a knee replacement, chronic back pain, abdominal wall sebaceous cancer, status post resection, BPH and question history of some type of pulmonary fibrosis. 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 No alcohol or tobacco. Lives at home with his . FAMILY HISTORY: Noncontributory to his current status. REVIEW OF SYSTEMS: As per the history of the present illness, otherwise constitutional negative for any fever or chills. HEENT: Unremarkable for double or blurry vision. Pulmonary is as per the history of the present illness. Cardiac: Unremarkable for any angina. Gastrointestinal (GI): Unremarkable for any nausea or vomiting. Genitourinary (): Unremarkable for any recent dysuria. Endocrine: Unremarkable for diabetes or thyroid disease. Hematologic: Significant for his previous DVT. Musculoskeletal: Significant for his chronic back pain. Allergies/immunology: Otherwise unremarkable. PHYSICAL EXAMINATION: Currently reveals a pleasant gentleman lying in bed. Blood pressure 116/80, respiratory rate 18 to 20 without accessory muscle use. He is currently afebrile, heart rate in the 90s with a regular rhythm. HEENT: Otherwise normocephalic, atraumatic. Pupils reactive. Neck: Supple. Trachea is in the midline. Mucous membranes of the nose and mouth are moist. Dentition in good repair. Airway is class II. Chest is symmetrical expansion. Percussion reasonable with tactile fremitus palpated. No focal wheeze, rhonchus, crackles, or rubs. Cardiac Exam: Regular with no murmur or gallop. Peripheral pulses palpable. No obvious edema. Abdomen: Soft, nontender with active bowel sounds. No convincing organomegaly or masses. Extremities: No cyanosis or clubbing. Neurologic: He is awake, alert, appropriate. Psych: Normal mood and affect. Pulse oximetry currently 92% on room air. Most recent laboratories show a white blood cell count of 10.9, hemoglobin 12.2, platelet count 299,000. Sodium 138, potassium 4.0, chloride 102, CO2 27, BUN 11, creatinine 1.02. Pinky blood gas done at the time of admission on an unknown oxygen flow shows a pH of 7.389, pCO2 of 46.5, pO2 of 47. Most recent PTT on heparin: 65.5. I reviewed his available studies. Certainly, he has significant clot burden on his current study, and the upper lobe densities are most consistent with areas of pulmonary infarct. IMPRESSION: 1. Pulmonary emboli with pulmonary infarct. 2. Recurrent embolic phenomenon. RECOMMENDATIONS: At this point, I am in agreement with full anticoagulation. Certainly he can be transitioned to outpatient therapy at any point since his vascular ultrasound of the lower extremities is negative for DVT. reports that when he is up and around, he does require supplemental oxygen. I do not find this terribly surprising. Certainly evaluation for hypercoagulable state is imperative given his multiple issues in the past and if no inciting event can be found for his current clot, then it may be worthwhile to leave him on lifelong anticoagulation until that workup can be completed. Spoken at length with him and his . Further recommendations will be made in the progress record as new information becomes available. LIYA
--- NOTE | 2018-10-31 13:06 | IPNPDOC ---
Text Note Date of Service The patient was seen on 10/31/18. NOTE Subjective: Patient states his mid back pain/thoracic region pain has improved. Denies any weakness in his extremities. Ambulating in hallway today, but was hypoxic. Objective: Vitals: (see below) General: No acute distress, laying comfortably in bed. HEENT: Moist mucous membranes. Neck: No JVD or lymphadenopathy Cardiac: Tachycardic. Regular rhythm., No murmurs Pulm: Diminished breath sounds at the bases b/l. No wheezing, rhonchi Abd: NT/ND + BS Ext: No edema or cyanosis. Strength 5/5 BUE, BLE. Thoracic region tender to palpation more so on the left side. Labs (see below) Images: CTA chest on 10/29/18 Impression: Positive study for multiple bilateral pulmonary artery emboli. Possible right upper lobe pulmonary infarction. Contrast opacified blood refluxes into the intrahepatic vena cava which may reflect some degree of right heart strain. Hiatal hernia. CT thoracic spine on 10/30/18 There is no acute fracture or subluxation. There is no disc bulge or herniation. Facets hypertrophy is present at the T9-10 through T12-L1 levels. The neural foramina are patent. There is loss of height of several mid and lower thoracic intervertebral discs. Anterior osteophytes are present in the mid and lower thoracic spine. Parenchymal densities are present in the lungs. IMPRESSION: 1. Degenerative change as described above. 2. There are parenchymal densities in the lungs. Please refer to CT angio chest date 10/29/2018. Assessment/Plan 1. Acute hypoxic respiratory failure secondary to acute pulmonary embolism bilaterally, with likely right-sided heart strain. Patient initially presented hypotensive, tachycardic, hypoxic. Rate is better controlled, and the patient is no longer hypotensive. Status post IV fluids. On heparin drip. Echocardiogram pending. Given the extent of the pulmonary embolism, and pulmonary infarction, Dr. Simms was consulted, appreciate input. We'll continue to monitor in PCU. states that she prefers Eliquis for anticoagulation and the patient is ready to be transitioned. 2. Left-sided thoracic/back pain - CT thoracic spine (see above). The pain may very well be secondary to the pulmonary embolism. Will obtain an MRI given persistent pain. Percocet and lidocaine patch for pain control. 3. History of chronic lower back pain. Strength intact. No alarming symptoms. 4. History of BPH continue Flomax 5. Acute kidney injury. Resolved. Status post IV fluids. Avoid nephrotoxins. 6. Leukocytosis likely secondary to #1. Continue to monitor. Afebrile. Blood cultures pending. DVT prophy: On heparin drip Overall prognosis guarded. Plan to d/c in the next 24-48hrs if continues to improve. VS,Fishbone, I+O VS, Fishbone, I+O Laboratory Tests 10/31/18 06:52 Red Blood Count 4.06 L, Mean Corpuscular Volume 88.4, Mean Corpuscular Hemoglobin 30.0, Mean Corpuscular Hemoglobin Concent 34.0, Red Cell Distribution Width 11.9, Calcium Level 8.5 L Vital Signs Date Time Temp Pulse Resp B/P (MAP) Pulse Ox O2 Delivery O2 Flow Rate FiO2 10/31/18 12:00 98.8 97 18 116/72 (87) 92 Nasal Cannula 1.0 I&O- Last 24 Hours up to 6 AM 10/31/18 06:00 Intake Total 160 ml Output Total 400 ml Balance -240 ml ARLETTE DIAZ MD Oct 31, 2018 13:05
[2018-10-31] MEDS ORDERED: FAMOTIDINE 20 MG TAB PO ONE (15:15)
[2018-10-31] MEDS ORDERED: FAMOTIDINE 20 MG TAB PO SCH (21:00)
[2018-11-01] VITALS (24 sets, daily range): BP systolic 109–124; BP diastolic 70–82; O2SAT 0–96
[2018-11-01] MEDS: HEPARIN SOD (PORCINE) 5000 UNITS/ML VIAL IV PRN ×2 (07:07→14:41)
[2018-11-01] MEDS: TAMSULOSIN 0.4 MG CAP PO SCH (08:10)
[2018-11-01] MEDS: FAMOTIDINE 20 MG TAB PO SCH ×2 (08:10→20:58)
[2018-11-01] MEDS: LIDOCAINE 5% (LIDODERM) PATCH TD SCH (08:11)
[2018-11-01 08:37] LABS: BASO % 0.1 % (0.0-1.0); EOS # 0.1 10^3/uL (0.0-0.50); HEMATOCRIT 36.8 % (42.0-52.0); HEMOGLOBIN 12.3 g/dl (13.5-17.5); LYMPH # 1.7 10^3/uL (1.5-4.5); LYMPH % 16.2 % (24.0-44.0); MEAN CORPUSCULAR HEMOGLOBIN 29.7 pg (27.0-33.0); MEAN CORPUSCULAR HGB CONC 33.4 g/dl (32.0-36.5); MEAN CORPUSCULAR VOLUME 88.9 fl (80.0-96.0); MONO # 0.8 10^3/uL (0.0-0.8); MONO % 7.5 % (0.0-5.0); NEUTROPHILS # 7.7 10^3/uL (1.8-7.7); NEUTROPHILS % 74.8 % (36.0-66.0); PLATELET COUNT, AUTOMATED 340 10^3/uL (150-450); RED BLOOD COUNT 4.14 10^6/uL (4.30-6.10); WHITE BLOOD COUNT 10.4 10^3/uL (4.0-10.0)
[2018-11-01 08:44] LABS: ALBUMIN 2.4 GM/DL (3.2-5.2); ALT/SGPT 12 U/L (12-78); BILIRUBIN,TOTAL 0.3 MG/DL (0.2-1.0); BLOOD UREA NITROGEN 9 MG/DL (7-18); CARBON DIOXIDE LEVEL 27 MEQ/L (21-32); CHLORIDE LEVEL 102 MEQ/L (98-107); CREATININE FOR GFR 1.01 MG/DL (0.70-1.30); GLOMERULAR FILTRATION RATE > 60.0 (>49); GLUCOSE, FASTING 110 MG/DL (70-100); POTASSIUM SERUM 3.4 MEQ/L (3.5-5.1); SODIUM LEVEL 137 MEQ/L (136-145); TOTAL PROTEIN 7.4 GM/DL (6.4-8.2)
[2018-11-01] MEDS: PERCOCET 5MG/325MG TAB PO PRN ×2 (09:01→16:26)
[2018-11-01] MEDS: HEPARIN DRIP 25,000 UNITS in APPROPRIATE DILUENT 1 EA IV SCH (10:19)
[2018-11-01] MEDS: **NOTE PATIENT COMMENT** MISC XX SCH (11:00)
--- NOTE | 2018-11-01 11:43 | IPNPDOC ---
Text Note Date of Service The patient was seen on 11/01/18. NOTE Subjective: Pain well controlled. Had a fever this am, however no cough. Amb ulating in hallway with improvement of dyspnea. No CP. HR 120s with ambulation. Objective: Vitals: (see below) General: No acute distress, laying comfortably in bed. HEENT: Moist mucous membranes. Neck: No JVD or lymphadenopathy Cardiac: RRR, No murmurs Pulm: Diminished breath sounds at the bases b/l. No wheezing, rhonchi Abd: NT/ND + BS Ext: No edema or cyanosis. Strength 5/5 BUE, BLE. Labs (see below) Images: CTA chest on 10/29/18 Impression: Positive study for multiple bilateral pulmonary artery emboli. Possible right upper lobe pulmonary infarction. Contrast opacified blood refluxes into the intrahepatic vena cava which may reflect some degree of right heart strain. Hiatal hernia. CT thoracic spine on 10/30/18 There is no acute fracture or subluxation. There is no disc bulge or herniation. Facets hypertrophy is present at the T9-10 through T12-L1 levels. The neural foramina are patent. There is loss of height of several mid and lower thoracic intervertebral discs. Anterior osteophytes are present in the mid and lower thoracic spine. Parenchymal densities are present in the lungs. IMPRESSION: 1. Degenerative change as described above. 2. There are parenchymal densities in the lungs. Please refer to CT angio chest date 10/29/2018. Assessment/Plan 1. Acute hypoxic respiratory failure secondary to acute pulmonary embolism bilaterally, with likely right-sided heart strain. Patient initially presented hypotensive, tachycardic, hypoxic. Rate is better controlled, and the patient is no longer hypotensive. Status post IV fluids. On heparin drip. Echocardiogram pending. Given the extent of the pulmonary embolism, and pulmonary infarction, Dr. Simms was consulted, appreciate input. We'll continue to monitor in PCU. states that she prefers Eliquis for anticoagulation and the patient is ready to be transitioned. 2. Left-sided thoracic/back pain - improved. CT thoracic spine (see above). The pain may very well be secondary to the pulmonary embolism. MRI thoracic spine unremarkable. 3. History of chronic lower back pain. Strength intact. No alarming symptoms. 4. History of BPH continue Flomax 5. Acute kidney injury. Resolved. Status post IV fluids. Avoid nephrotoxins. 6. Leukocytosis likely secondary to #1. Continue to monitor. Afebrile. Blood cultures pending. DVT prophy: On heparin drip Overall prognosis guarded. Plan to d/c in the next 24-48hrs if continues to improve. VS,Fishbone, I+O VS, Fishbone, I+O Laboratory Tests 11/01/18 06:09 Red Blood Count 4.14 L, Mean Corpuscular Volume 88.9, Mean Corpuscular Hemoglobin 29.7, Mean Corpuscular Hemoglobin Concent 33.4, Red Cell Distribution Width 11.9, Neutrophils (%) (Auto) 74.8 H, Lymphocytes (%) (Auto) 16.2 L, Monocytes (%) (Auto) 7.5 H, Eosinophils (%) (Auto) 1.0, Basophils (%) (Auto) 0.1, Neutrophils # (Auto) 7.7, Lymphocytes # (Auto) 1.7, Monocytes # (Auto) 0.8, Eosinophils # (Auto) 0.1, Basophils # (Auto) 0.0, Calcium Level 9.0, Aspartate Amino Transf (AST/SGOT) 15, Alanine Aminotransferase (ALT/SGPT) 12, Alkaline Phosphatase 70, Total Bilirubin 0.3 #, Total Protein 7.4, Albumin 2.4 L Vital Signs Date Time Temp Pulse Resp B/P (MAP) Pulse Ox O2 Delivery O2 Flow Rate FiO2 11/01/18 09:31 18 11/01/18 09:00 99.1 11/01/18 08:00 91 112/82 (92) 94 Nasal Cannula 1.0 I&O- Last 24 Hours up to 6 AM 11/01/18 06:00 Intake Total 557 ml Output Total 0 ml Balance 557 ml ARLETTE DIAZ MD Nov 01, 2018 11:43
[2018-11-01] MEDS ORDERED: POTASSIUM CHLORIDE 10 MEQ SR TABLET PO ONE (18:00)
[2018-11-01] MEDS: APIXABAN 5 MG TAB (ELIQUIS) PO SCH (20:58)
[2018-11-01] MEDS ORDERED: CALCIUM CARBONATE 500 MG CHEW U/D PO ONE (23:00)
[2018-11-02] VITALS (22 sets, daily range): BP systolic 91–128; BP diastolic 52–85; O2SAT 91–97
[2018-11-02] MEDS: PERCOCET 5MG/325MG TAB PO PRN ×3 (01:42→17:47)
[2018-11-02 06:00] LABS: HEMATOCRIT 36.8 % (42.0-52.0); HEMOGLOBIN 12.5 g/dl (13.5-17.5); MEAN CORPUSCULAR HEMOGLOBIN 29.6 pg (27.0-33.0); MEAN CORPUSCULAR VOLUME 87.2 fl (80.0-96.0); PLATELET COUNT, AUTOMATED 389 10^3/uL (150-450); RED BLOOD COUNT 4.22 10^6/uL (4.30-6.10); WHITE BLOOD COUNT 8.8 10^3/uL (4.0-10.0)
[2018-11-02 06:21] LABS: BLOOD UREA NITROGEN 11 MG/DL (7-18); CALCIUM LEVEL 9.4 MG/DL (8.8-10.2); CARBON DIOXIDE LEVEL 24 MEQ/L (21-32); CHLORIDE LEVEL 107 MEQ/L (98-107); CREATININE FOR GFR 1.02 MG/DL (0.70-1.30); GLOMERULAR FILTRATION RATE > 60.0 (>49); GLUCOSE, FASTING 114 MG/DL (70-100); SODIUM LEVEL 140 MEQ/L (136-145)
[2018-11-02 07:34] LABS: VITAMIN B12 LEVEL 573 PG/ML (232-1245)
[2018-11-02] MEDS ORDERED: ELIQ5TAB PO (07:46)
--- NOTE | 2018-11-02 08:02 | REP ---
Clinical: Pulmonary infarction. Technique: PA and lateral. Comparison: 10/29/2018. Findings: Mediastinum and cardiac silhouette are within normal limits and stable. Lung vega are relatively clear and without obvious focal consolidation, effusion, or pneumothorax. Lateral view raises the possibility of small posterobasilar pleural reaction. Skeletal structures are intact and stable. Evidence for prior right shoulder replacement. Impression: No obvious focal consolidation. Lateral view raises the possibility of small posterior basilar pleural reaction. Electronically Signed by Bonilla Rangel MD 11/02/2018 07:55 A
[2018-11-02] MEDS: LIDOCAINE 5% (LIDODERM) PATCH TD SCH (08:22)
[2018-11-02] MEDS: APIXABAN 5 MG TAB (ELIQUIS) PO SCH ×2 (08:22→20:41)
[2018-11-02] MEDS: TAMSULOSIN 0.4 MG CAP PO SCH (08:22)
[2018-11-02] MEDS: FAMOTIDINE 20 MG TAB PO SCH ×2 (08:22→20:40)
--- NOTE | 2018-11-02 13:46 | IPNPDOC ---
Text Note Date of Service The patient was seen on 11/02/18. NOTE Subjective: Patient states his dyspnea is improving. No chest pain. Ambulated today, and his heart rates increased to 120s. Objective: Vitals: (see below) General: No acute distress, laying comfortably in bed. HEENT: Moist mucous membranes. Neck: No JVD or lymphadenopathy Cardiac: RRR, No murmurs Pulm: Diminished breath sounds at the bases b/l. No wheezing, rhonchi Abd: NT/ND + BS Ext: No edema or cyanosis. Strength 5/5 BUE, BLE. Labs (see below) Images: CTA chest on 10/29/18 Impression: Positive study for multiple bilateral pulmonary artery emboli. Possible right upper lobe pulmonary infarction. Contrast opacified blood refluxes into the intrahepatic vena cava which may reflect some degree of right heart strain. Hiatal hernia. CT thoracic spine on 10/30/18 There is no acute fracture or subluxation. There is no disc bulge or herniation. Facets hypertrophy is present at the T9-10 through T12-L1 levels. The neural foramina are patent. There is loss of height of several mid and lower thoracic intervertebral discs. Anterior osteophytes are present in the mid and lower thoracic spine. Parenchymal densities are present in the lungs. IMPRESSION: 1. Degenerative change as described above. 2. There are parenchymal densities in the lungs. Please refer to CT angio chest date 10/29/2018. Assessment/Plan 1. Acute hypoxic respiratory failure secondary to acute pulmonary embolism bilaterally, with likely right-sided heart strain. Patient initially presented hypotensive, tachycardic, hypoxic. Rate is better controlled, and the patient is no longer hypotensive. Status post IV fluids. On heparin drip. Echocardiogram pending. Given the extent of the pulmonary embolism, and pulmonary infarction, Dr. Simms was consulted, appreciate input. We'll continue to monitor in PCU. Heparin changed to Eliquis for anticoagulation. 2. Left-sided thoracic/back pain - improved. CT thoracic spine (see above). The pain may very well be secondary to the pulmonary embolism. MRI thoracic spine unremarkable. 3. History of chronic lower back pain. Strength intact. No alarming symptoms. 4. History of BPH continue Flomax 5. Acute kidney injury. Resolved. Status post IV fluids. Avoid nephrotoxins. 6. Leukocytosis likely secondary to #1. Continue to monitor. Afebrile. Blood cultures pending. DVT prophy: Eliquis Overall prognosis guarded. Plan to d/c in the next 24hrs if continues to improve. VS,Fishbone, I+O VS, Fishbone, I+O Laboratory Tests 11/02/18 05:26 Red Blood Count 4.22 L, Mean Corpuscular Volume 87.2, Mean Corpuscular Hemoglobin 29.6, Mean Corpuscular Hemoglobin Concent 34.0, Red Cell Distribution Width 12.0, Calcium Level 9.4 Vital Signs Date Time Temp Pulse Resp B/P (MAP) Pulse Ox O2 Delivery O2 Flow Rate FiO2 11/02/18 12:16 18 11/02/18 12:00 97.0 96 123/80 (94) 97 Room Air 11/01/18 16:00 1.0 I&O- Last 24 Hours up to 6 AM 11/02/18 06:00 Intake Total 1174 ml Output Total 300 ml Balance 874 ml ARLETTE DIAZ MD Nov 02, 2018 13:46
--- NOTE | 2018-11-02 19:12 | REPVR ---
EXAM: MR Lumbar Spine Without Contrast. EXAM DATE/TIME: 11/02/2018 6:32 PM CLINICAL HISTORY: 63 years old, male; Pain; Low back pain; Additional info: Frequent falls, chronic back pain TECHNIQUE: Multiplanar magnetic resonance images of the lumbar spine without intravenous contrast. COMPARISON: No relevant prior studies available. FINDINGS: The aorta appears normal in size. The conus is normal in size with no evidence of abnormal bright signal intensity and ending at L1. There is bilateral spondylolysis of the pars interarticularis of L5. There is degenerative changes of the vertebral endplates L5-S1 on the left. L5-S1: There is a grade 2 spondylolisthesis of L5 on S1 with bilateral spondylolyses of the pars interarticularis of L5. There is moderate broad-based posterior disc protrusion and with posterior facet hypertrophy causing severe central spinal canal stenosis. Severe bilateral L5 neural foramina narrowing. L4-L5: There is moderate posterior disc protrusion. There is severe bilateral sclerosis and facet hypertrophy. This all produces very severe central spinal canal stenosis the equivalent of a myelographic block. L3-L4 there is moderate posterior disc osteophyte complex causing moderate impression on the thecal sac. There is 5 mm of retrolisthesis L3 on L4. L2-L3 mild broad-based disc osteophyte complex. L1-L2 mild broad-based disc osteophyte complex. IMPRESSION: 1. The L5-S1 level demonstrates severe central spinal canal stenosis and severe bilateral L5 neural foramina narrowing. Grade 2 spondylolisthesis with bilateral spondylolyses. 2. The L4-L5 level demonstrates very severe central spinal canal stenosis Electronically signed by: Marcos Mark On 11/02/2018 19:12:15 PM
[2018-11-02] MEDS: **NOTE PATIENT COMMENT** MISC XX SCH (20:46)
[2018-11-03] VITALS (10 sets, daily range): BP systolic 114–125; BP diastolic 62–78; O2SAT 94–96
[2018-11-03] MEDS: PERCOCET 5MG/325MG TAB PO PRN ×2 (02:55→08:56)
[2018-11-03 05:27] LABS: HEMATOCRIT 35.4 % (42.0-52.0); HEMOGLOBIN 11.8 g/dl (13.5-17.5); MEAN CORPUSCULAR HEMOGLOBIN 29.9 pg (27.0-33.0); MEAN CORPUSCULAR HGB CONC 33.3 g/dl (32.0-36.5); MEAN CORPUSCULAR VOLUME 89.8 fl (80.0-96.0); PLATELET COUNT, AUTOMATED 358 10^3/uL (150-450); RED BLOOD COUNT 3.94 10^6/uL (4.30-6.10); WHITE BLOOD COUNT 7.4 10^3/uL (4.0-10.0)
[2018-11-03 05:48] LABS: BLOOD UREA NITROGEN 11 MG/DL (7-18); CARBON DIOXIDE LEVEL 26 MEQ/L (21-32); CHLORIDE LEVEL 107 MEQ/L (98-107); CREATININE FOR GFR 0.94 MG/DL (0.70-1.30); GLOMERULAR FILTRATION RATE > 60.0 (>49); GLUCOSE, FASTING 96 MG/DL (70-100); MAGNESIUM LEVEL 1.7 MG/DL (1.8-2.4); SODIUM LEVEL 141 MEQ/L (136-145)
[2018-11-03] MEDS: TAMSULOSIN 0.4 MG CAP PO SCH (08:48)
[2018-11-03] MEDS: LIDOCAINE 5% (LIDODERM) PATCH TD SCH (08:48)
[2018-11-03] MEDS: FAMOTIDINE 20 MG TAB PO SCH (08:48)
[2018-11-03] MEDS: APIXABAN 5 MG TAB (ELIQUIS) PO SCH (08:48)
--- NOTE | 2018-11-03 19:08 | DSES ---
DATE OF ADMISSION: 10/29/2018 DATE OF DISCHARGE: 11/03/2018 PRIMARY CARE PROVIDER: Dominick Olvera M.D. DISCHARGE DIAGNOSES: 1. acute pulmonary embolism bilateral with right heart strain. 2. Right-sided back pain. 3. History of chronic lower back pain. 4. BPH. 5. Acute kidney injury, resolved. 6. Leukocytosis. 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 Was previously diagnosed with pneumonia on 10/02/2018. Discharged home on prednisone and Levaquin. Stated that patient took the medicine and felt a little bit better initially; however, chest pain came back and was getting worse gradually and decided to come to the emergency department (ED) for further evaluation. Reported 6/10 bilateral chest pain, severe, and CT angiogram was done, showing bilateral pulmonary embolism (PE). HOSPITAL COURSE: Patient was admitted to the hospital. Initially placed on heparin drip. Echo has been ordered. Serial cardiac enzymes appreciated. Intravenous (IV) fluids have been given. Discussion was held for anticoagulation. Patient was switched to Eliquis after detailed discussion. Patient's condition gradually improved. Patient initially was tachycardic and hypoxic but currently is sinus rhythm, not tachycardic, able to ambulate. No longer hypoxic. Tolerating oral. Ready to be discharged for further care as outpatient. VITAL SIGNS: Temperature 98.3, pulse 88, respirations 18, blood pressure 120/62, pulse oximetry 98% on room air. LABORATORY DATA: WBC 7.4, hemoglobin and hematocrit 11.8/35.4, platelets 258. Chemistry: Sodium 141, potassium 4, chloride 107, bicarbonate 26, BUN 11, creatinine 0.94, magnesium 1.7. GENERAL: Patient alert, comfortable in no acute distress. HEENT: Normocephalic, atraumatic. PULMONARY: Bilaterally clear. CARDIAC: Regular, S1, S2. ABDOMEN: Soft, nontender. Positive bowel sounds. EXTREMITIES: No clubbing, cyanosis, or edema. DISCHARGE MEDICATIONS: - Eliquis 10 mg by mouth twice a day, to complete a total 7-day course and switch to 5 mg by mouth twice a day - Flomax 0.4 mg by mouth daily - tramadol 50 mg by mouth every 4 hours as needed Discharge instructions: Please see primary care provider in 7 days. Consider age-appropriate cancer screening. Consider hematological workup for clotting disorder. Return if symptoms worsen or develops any signs of uncontrolled bleeding. Further care as per primary care provider. MTDD
== END 2018-11-03 14:10 | disposition home or self-care (01) | DRG 175 ==
LOC: M ED 11:46 → M ED INP 16:54 → M PCU 21:20
PROVIDERS: ADMIT Hospitalist; ATTEND Hospitalist
DX: I26.99 Other pulmonary embolism without acute cor pulmonale (principal); J96.01 Acute respiratory failure with hypoxia; N17.9 Acute kidney failure, unspecified; N40.0 Benign prostatic hyperplasia without lower urinary tract symptoms; M54.5 Low back pain; J84.10 Pulmonary fibrosis, unspecified; Z86.718 Personal history of other venous thrombosis and embolism; Z79.899 Other long term (current) drug therapy; Z96.653 Presence of artificial knee joint, bilateral; Z85.828 Personal history of other malignant neoplasm of skin

== ENCOUNTER → 2021-09-06 | Outpatient (CLI) | payer MEDICARE, MEDICAID ==
[~2021-09-06] MED LIST changes: +ELIQ5TAB PO; +FLOM0.4C39 PO; +METO25TA4 PO; -NAPR-50 PO; +NAPR-837 PO; +TRAM50TA2 PO; +XARE10TA PO
== END ==
LOC: M LABSMTC 11:46
PROVIDERS: ATTEND Anesthesiology
DX: Z01.812 Encounter for preprocedural laboratory examination (principal); Z20.822 Contact with and (suspected) exposure to COVID-19

== ENCOUNTER 2021-09-11 08:34 | Day surgery (SDC) | payer OTHER ==
[~2021-09-11] VITALS: Ht 182.9 cm; Wt 99.0 kg
[~2021-09-11 08:34] MED LIST changes: +NS 1,000 ML IV ONE
[2021-09-11] MEDS ORDERED: LIDOCAINE 2% 100MG/5ML SDV (FOR ANES.) As Ordered ONE (08:36)
[2021-09-11] MEDS ORDERED: propofoL 200 MG/20 ML VIAL As Ordered ONE (08:36)
--- OUTSIDE RECORDS SUMMARY | 2021-09-11 08:38 | CCD | Continuity of Care Document ---
Author Author Geovanni STEWART Organization Unknown Address [address] [place] [address], [address] [place] [address] Phone [phone] Care Team Providers Care Drafter Tool Design Name Role Phone Dominick Olvera M.D. AUTM [phone] AUTM Unavailable Problems Active Problems Provider Date Essential hypertension ALEXIS Ferguson Onset: 08/22/2021 Social History Type Date Description Comments Sex Unknown ETOH Use Denies alcohol use Tobacco Use Start: Unknown Denies Smoking Recreational Drug Use Denies Drug Use Allergies and adverse reactions Description No Known Drug Allergies Medications Active Medications SIG Qnty Indications Ordering Provide r Date Xarelto 10mg Tablets once dion ly Unknown Tramadol HCL 50mg Tablets prn Unknown Metoprolol Tartrate 25mg Tablets Once daily Unknown Immunizations Description No Information Available Vital Signs Date Vital Result Comment 08/22/2021 1:14pm BP Systolic 130 mmHg BP Diastolic 72 mmHg Body Temperature 98.6 F Height 71 inches 5'11" Weight 214.38 lb BMI (Body Mass Index) 29.9 kg/m2 [place] Body Weight 172 lb Weight 97.240 kg BSA (Body Surface Area) 2.17 m2 Results Description No Information Available Procedures Date Code Description Status 08/22/2021 83856 Office/Outpatient New Moderate M DM 45-59 Minutes Completed Medical Devices Description No Information Available Encounters Type Date Location Provider Dx Diagnosis Office Visit 08/22/2021 1:15p [facility] ALEXIS Villanueva Z86.010 Personal history of colonic polyps Z79.01 FDC (current) use of a nticoagulants Assessments Date Code Description Provider 08/22/2021 Z86.010 Personal history of colonic poly ps ALEXIS Ferguson 08/22/2021 Z79.01 intermission coordinator (current) use of antic oagulants ALEXIS Ferguson Plan of Treatment Future Appointment(s):* 09/24/2021 1:30 pm - ALEXIS Ferguson at [facility] * 09/11/2021 2:00 pm - Geovany Hutchins MD at [facility] 08/22/2021 - ALEXIS Ferguson* Z86.010 Personal history of colonic polyps * Z79.01 FDC (current) use of anticoagulants Functional Status Description No Information Available Mental Status Description No Information Available Referrals Refer to Reason for Referral Status Appt Date Geoavny Hutchins MD SCREENING COLONOSCOPY Scheduled [address] [place], [place] [address] [phone]
--- OUTSIDE RECORDS SUMMARY | 2021-09-11 08:38 | CCD | Continuity of Care Document ---
Author Author Geovanni STEWART Organization Unknown Address [address] [place] [address], [address] [place] [address] Phone [phone] Care Team Providers Care Director [facility] Name Role Phone Dominick Olvera M.D. AUTM [phone] AUTM Unavailable Problems Active Problems Provider Date [...] lb BMI (Body Mass Index) 29.9 kg/m2 [place] Body Weight 172 lb Weight 97.240 kg BSA (Body Surface Area) 2.17 m2 Results Description No Information Available Procedures Description No Information Available Medical Devices Description No Information Available Encounters Description No Information Available Assessments Date Code Description Provider 08/22/2021 Z86.010 Personal history of colonic poly ps ALEXIS Ferguson 08/22/2021 Z79.01 traveling secretary (current) use of antic oagulants ALEXIS Ferguson Plan of Treatment Future Appointment(s):* 09/24/2021 1:30 pm - ALEXIS Ferguson at [facility] * 09/11/2021 2:00 pm - Geovany Hutchins MD at [facility] 08/22/2021 - ALEXIS Ferguson* Z86.010 Personal history of colonic polyps * Z79.01 traveling secretary (current) use of anticoagulants Functional Status Description No Information Available Mental Status Description No Information Available Referrals Refer to Reason for Referral Status Appt Date Geovany Hutchins MD SCREENING COLONOSCOPY Scheduled [address] [place], [place] [address] [phone]
--- OUTSIDE RECORDS SUMMARY | 2021-09-11 08:38 | CCD ---
Author Author [facility] Organization [facility] Address Unknown Phone Unavailable Care Team Providers Care Train Starter Name Role Phone Saravia, L Josefa RPA Unavailable Unavailable Saravia, L Josefa RPA Unavailable Unavailable Saravia, L Josefa RPA Unavailable Unavailable Saravia, L Josefa RPA Unavailable Unavailable Saravia, L Josefa RPA Unavailable Unavailable Saravia, L Josefa RPA Unavailable Unavailable Saravia, L Josefa RPA Unavailable Unavailable Saravia, L Josefa RPA Unavailable Unavailable Saravia, L Josefa RPA Unavailable Unavailable Saravia, L Josefa RPA Unavailable Unavailable Saravia, L Josefa RPA Unavailable Unavailable Saravia, L Josefa RPA Unavailable Unavailable Saravia, L Josefa RPA Unavailable Unavailable Saravia, L Josefa RPA Unavailable Unavailable Saravia, L Josefa RPA Unavailable Unavailable Saravia, L Josefa RPA Unavailable Unavailable Saravia, L Josefa RPA Unavailable Unavailable Saravia, L Josefa RPA Unavailable Unavailable Saravia, L Josefa RPA Unavailable Unavailable Saravia, L Josefa RPA Unavailable Unavailable Saravia, L Josefa RPA Unavailable Unavailable Saravia, L Josefa RPA Unavailable Unavailable Saravia, L Josefa RPA Unavailable Unavailable Saravia, L Josefa RPA Unavailable Unavailable Saravia, L Josefa RPA Unavailable Unavailable Saravia, L Josefa RPA Unavailable Unavailable Saravia, L Josefa RPA Unavailable Unavailable Saravia, L Josefa RPA Unavailable Unavailable Saravia, L Josefa RPA Unavailable Unavailable Saravia, L Josefa RPA Unavailable Unavailable Saravia, L Josefa RPA Unavailable Unavailable Saravia, L Josefa RPA Unavailable Unavailable Re-disclosure Warning The records that you are about to access may contain information from federally-assisted alcohol or drug abuse programs. If such information is present, then the following federally mandated warning applies: This information has been disclosed to you from records protected by federal confidentiality rules (42 CFR part 2). The federal rules prohibit you from making any further disclosure of this information unless further disclosure is expressly permitted by the written consent of the person to whom it pertains or as otherwise permitted by 42 CFR part 2. A general authorization for the release of medical or other information is NOT sufficient for this purpose. The Federal rules restrict any use of the information to criminally investigate or prosecute any alcohol or drug abuse patient.The records that you are about to access may contain highly sensitive health information, the redisclosure of which is protected by Article 27-F of the [facility] Public Health law. If you continue you may have access to information: Regarding HIV / AIDS; Provided by facilities licensed or operated by the [facility] Office of Mental Health; or Provided by the [facility] Office for People With Developmental Disabilities. If such information is present, then the following [facility] mandated warning applies: This information has been disclosed to you from confidential records which are protected by state law. State law prohibits you from making any further disclosure of this information without the specific written consent of the person to whom it pertains, or as otherwise permitted by law. Any unauthorized further disclosure in violation of state law may result in a fine or alf sentence or both. A general authorization for the release of medical or other information is NOT sufficient authorization for further disc losure. Encounters Encounter Providers Location Date Indications Data Source(s ) Outpatient Attender: Josefa Glover/Baldomero/Emre/Chinyere molina 08/22/2021 12:15:00 PM EST [facility] 07/21/2021 11:28:32 AM EDT - 021 11:36:16 AM EDT [facility] ([facility]) Medications No Information Insurance Providers Payer name Policy type / Coverage type Policy ID Covered republican ID Covered republican's relationship to mcclellan Policy Mcclellan Plan Information MEDICARE [id number] Jennifer [id number] A Medicare C [id number] SELF [id number] A [place] Progressive Supplemental F [id number] SELF [id number] MEDICARE [id number] SP [id number] A COMMERCIAL GENERIC [id number] Jennifer [id number] BRAZILIAN PROGRESSIVE [id number] 1 [id number] [facility] [id number] Jennifer [id number] Medicaid Medicaid [id number] Self [id number] ANSI-Commercial [id number] ANSI-Commercial [id number] ANSI-Medicare Part B [id number] ANSI-Not a Secondary Insurance [id number] MEDICAID [id number] ANSI-Medicare Part B [id number] ANSI-Commercial [id number] ANSI-Commercial [id number] ANSI-Not a Secondary Insurance [id number] ANSI-Commercial [id number] ANSI-Medicare Part B [id number] ANSI-Not a Secondary Insurance [id number] ANSI-Commercial [id number] ANSI-Commercial [id number] ANSI-Medicare Part B [id number] ANSI-Not a Secondary Insurance [id number] ANSI-Commercial [id number] ANSI-Medicare Part B [id number] ANSI-Commercial [id number] ANSI-Not a Secondary Insurance [id number] ANSI-Commercial [id number] ANSI-Not a Secondary Insurance [id number] ANSI-Medicare Part B [id number] ANSI-Commercial [id number] ANSI-Commercial [id number] [facility] CHOICE [id number] ANSI-Commercial [id number] ANSI-Not a Secondary Insurance [id number] ANSI-Commercial [id number] ANSI-Medicare Part B [id number] [facility] O [id number] S [id number] [facility] CHOICE O [id number] S [id number] MEDICARE C [id number] S [id number] A ANSI-Not a Secondary Insurance [id number] ANSI-Medicare Part B [id number] ANSI-Commercial [id number] SELF PAY 2 UNAVAILABLE 1 UNAVAILA BLE BRAZILIAN PROGRESSIVE S [id number] S [id number] BRAZILIAN PROGRESSIVE [id number] SP [id number] 'S ADMINISTRATION [id number] SP [id number] MEDICARE [id number] SP [id number] [facility] MEDICAID [id number] SP [id number] MEDICARE [id number] SP [id number] A Medicare P [id number] S [id number] Medicaid S UNAVAILABLE S UNAVAILA BLE [employer] CHOICE PROGRAM O [id number] S [id number] Medicare S UNAVAILABLE S UNAVAILA BLE MEDICAID [id number] [facility] [id number] SP [id number] Problems, Conditions, and Diagnoses Code Display Name Description Problem Type Effective Dates Data Source(s) 10544543 Essential hypertension Essential hypertension Problem 08/22/2021 12:00:00 AM [facility] Surgeries/Procedures Procedure Description Date Indications Data Source(s) OFFICE OUTPATIENT NEW 45 MINUTES 08/22/2021 12:00:00 A M EST [facility] ([facility]) Results ID Date Data Source [id number] 09/06/2021 11:45:00 AM EST [facility] Name Value Range Interpretation Code Description Data Mariana rce(s) Supporting Document(s) SARS-CoV-2 (COVID-19) RNA [Presence] in Respiratory specimen by DAT with probe detection Not Detected [facility] This lab was ordered by [facility] and reported by [facility]. ID Date Data Source [id number] 07/21/2021 11:30:00 AM EDT [facility] Name Value Range Interpretation Code Description Data Mariana rce(s) Supporting Document(s) SARS-CoV-2 RNA Resp Ql DAT+probe NOT DETECTED [facility] This lab was ordered by VANDA hawkins and reported by VANDA Jean. Procedure Social History No Information Vital Signs ID Date Data Source UNK Name Value Range Interpretation Code Description Data Source(s) Systolic blood pressure 130 mm[Hg] 130 mm[Hg] [facility] ([facility]) Diastolic blood pressure 72 mm[Hg] 72 mm[Hg] [facility] ([facility]) Body temperature 98.6 [degF] 98.6 [degF] [facility] ([facility]) Body height 71 [in_i] 71 [in_i] [facility] ([facility]) 5'11" Body weight 214.38 [lb_av] 214.38 [lb_av] [facility] Body mass index (BMI) [Ratio] 29.9 kg/m2 29.9 k g/m2 [facility] ([facility]) Presho body weight 172 [lb_av] 172 [lb_av] [facility] ([facility]) Body weight 97.240 kg 97.240 kg [facility] ([facility]) Body surface area Derived from formula 2.17 m2 2.17 m2 [facility] ([facility])
--- OUTSIDE RECORDS SUMMARY | 2021-09-11 08:38 | CCD | Continuity of Care Document ---
Author Author Geovanni STEWART Organization Unknown Address [address] [place] [address], [address] [place] [address] Phone [phone] Care Team Providers Care Knitting Demonstrator Name Role Phone Dominick Olvera M.D. AUTM [phone] AUTM Unavailable Problems Active Problems Provider Date [...] lb BMI (Body Mass Index) 29.9 kg/m2 [place] Body Weight 172 lb Weight 97.240 kg BSA (Body Surface Area) 2.17 m2 Results Description No Information Available Procedures Description No Information Available Medical Devices Description No Information Available Encounters Description No Information Available Assessments Date Code Description Provider 08/22/2021 Z86.010 Personal history of colonic poly ps ALEXIS Ferguson 08/22/2021 Z79.01 transportation solutions manager (current) use of antic oagulants ALEXIS Ferguson Plan of Treatment Future Appointment(s):* 09/24/2021 1:30 pm - ALEXIS Ferguson at [facility] * 09/11/2021 2:00 pm - Geovany Hutchins MD at [facility] 08/22/2021 - ALEXIS Ferguson* Z86.010 Personal history of colonic polyps * Z79.01 transportation solutions manager (current) use of anticoagulants Functional Status Description No Information Available Mental Status Description No Information Available Referrals Refer to Reason for Referral Status Appt Date Geovany Hutchins MD SCREENING COLONOSCOPY Scheduled [address] [place], [place] [address] [phone]
--- OUTSIDE RECORDS SUMMARY | 2021-09-11 08:38 | CCD | Continuity of Care Document ---
Author Author Geovanni STEWART Organization Unknown Address [address] [place] [address], [address] [place] [address] Phone [phone] Care Team Providers Care Hairmasters Manager Name Role Phone Dominick Olvera M.D. AUTM [phone] AUTM Unavailable Problems Active Problems Provider Date Essential hypertension LAEXIS Ferguson Onset: 08/22/2021 Social History Type Date [...] lb BMI (Body Mass Index) 29.9 kg/m2 [place] Body Weight 172 lb Weight 97.240 kg BSA (Body Surface Area) 2.17 m2 Results Description No Information Available Procedures Description No Information Available Medical Devices Description No Information Available Encounters Description No Information Available Assessments Date Code Description Provider 08/22/2021 Z86.010 Personal history of colonic poly ps ALEXIS Ferguson 08/22/2021 Z79.01 terminologist (current) use of antic oagulants ALEXIS Ferguson Plan of Treatment Future Appointment(s):* 09/24/2021 1:30 pm - ALEXIS Ferguson at [facility] * 09/11/2021 2:00 pm - Geovany Hutchins MD at [facility] 08/22/2021 - ALEXIS Ferguson* Z86.010 Personal history of colonic polyps * Z79.01 terminologist (current) use of anticoagulants Functional Status Description No Information Available Mental Status Description No Information Available Referrals Refer to Reason for Referral Status Appt Date Geovany Hutchins MD SCREENING COLONOSCOPY Scheduled [address] [place], [place] [address] [phone]
[2021-09-11] MEDS ORDERED: ePHEDrine SULFATE 25 MG/5 ML(5MG/ML) SYRINGE As Ordered ONE (10:21)
--- NOTE | 2021-09-11 10:25 | ROOR ---
Patient Name: Geovanni Hopson Procedure Date: 09/11/2021 9:51 AM Date of : 1955 Age: 66 Room: [facility] Gender: Male Note Status: Finalized Procedure: Colonoscopy Indications: High risk colon cancer surveillance: Personal history of colonic polyps Providers: Geovany Hutchins MD Referring MD: Dominick Olvera Requesting Provider: Medicines: Monitored Anesthesia Care Complications: No immediate complications. Procedure: Pre-Anesthesia Assessment: - Prior to the procedure, a History and Physical was performed, and patient medications and allergies were reviewed. The patient is competent. The risks and benefits of the procedure and the sedation options and risks were discussed with the patient. All questions were answered and informed consent was obtained. Patient identification and proposed procedure were verified by the physician, the nurse and the anesthesiologist in the endoscopy suite. Mental Status Examination: alert and oriented. Airway Examination: normal oropharyngeal airway and neck mobility. Respiratory Examination: clear to auscultation. CV Examination: normal. Prophylactic Antibiotics: The patient does not require prophylactic antibiotics. Prior Anticoagulants: The patient has taken Xarelto (rivaroxaban), last dose was 4 days prior to procedure. ASA Grade Assessment: III - A patient with severe systemic disease. After reviewing the risks and benefits, the patient was deemed in satisfactory condition to undergo the procedure. The anesthesia plan was to use monitored anesthesia care (MAC). Immediately prior to administration of medications, the patient was re-assessed for adequacy to receive sedatives. The heart rate, respiratory rate, oxygen saturations, blood pressure, adequacy of pulmonary ventilation, and response to care were monitored throughout the procedure. The physical status of the patient was re-assessed after the procedure. The Colonoscope was introduced through the anus and advanced to the cecum, identified by appendiceal orifice and ileocecal valve. The colonoscopy was performed without difficulty. The patient tolerated the procedure well. The quality of the bowel preparation was good. Findings: The perianal and digital rectal examinations were normal. A localized area of mildly congested mucosa was found in the transverse colon. This was biopsied with a cold forceps for histology. Two flat polyps were found in the rectum. The polyps were 1 to 2 mm in size. These polyps were removed with a jumbo cold forceps. Resection and retrieval were complete. Estimated blood loss was minimal. Impression: - Congested mucosa in the transverse colon. Biopsied. - Two 1 to 2 mm polyps in the rectum, removed with a jumbo cold forceps. Resected and retrieved. Recommendation: - Repeat colonoscopy in 5 years for surveillance. - Resume Xarelto (rivaroxaban) at prior dose today. Refer to primary physician for further adjustment of therapy. Procedure Code(s): --- Professional --- 97107, Colonoscopy, flexible; with biopsy, single or multiple Diagnosis Code(s): --- Professional --- Z86.010, Personal history of colonic polyps K62.1, Rectal polyp K63.89, Other specified diseases of intestine CPT copyright 2019 [employer]. All rights reserved. The codes documented in this report are preliminary and upon regional operations manager review may be revised to meet current compliance requirements. Geovany Hutchins MD Geovany Hutchins MD 09/11/2021 10:24:46 AM Electronically signed by Geovany Hutchins MD Number of Addenda: 0 Note Initiated On: 09/11/2021 9:51 AM Estimated Blood Loss: Estimated blood loss was minimal.
[2021-09-11 10:50] VITALS: BP 120/81
== END 2021-09-11 11:06 | disposition home or self-care (01) ==
LOC: M OPP 08:34
PROVIDERS: ATTEND Surgery
DX: Z12.11 Encounter for screening for malignant neoplasm of colon (principal); Z86.010 Personal history of colon polyps; K63.5 Polyp of colon; Z79.891 Long term (current) use of opiate analgesic; Z79.899 Other long term (current) drug therapy; Z88.5 Allergy status to narcotic agent; Z88.8 Allergy status to other drugs, medicaments and biological substances; Z86.711 Personal history of pulmonary embolism; Z86.718 Personal history of other venous thrombosis and embolism

== ENCOUNTER → 2022-01-03 | Outpatient (CLI) | payer OTHER ==
[~2022-01-03] MED LIST changes: -NS 1,000 ML IV ONE
[2022-01-03 10:10] LABS: HEMATOCRIT 44.7 % (42.0-52.0); HEMOGLOBIN 15.1 g/dl (13.5-17.5); MEAN CORPUSCULAR HEMOGLOBIN 31.1 pg (27.0-33.0); MEAN CORPUSCULAR HGB CONC 33.8 g/dl (32.0-36.5); PLATELET COUNT, AUTOMATED 297 10^3/uL (150-450); RED BLOOD COUNT 4.86 10^6/uL (4.30-6.10); WHITE BLOOD COUNT 8.3 10^3/uL (4.0-10.0)
[2022-01-03 10:42] LABS: ERYTHROCYTE SEDIMENTATION RATE 18 mm/hr (0-20)
== END ==
LOC: M LAB 09:38
PROVIDERS: ATTEND Orthopaedic Surgery
DX: M25.561 Pain in right knee (principal)

== ENCOUNTER → 2022-01-04 | Outpatient (REF) | payer OTHER | LOC: M LAB REF 12:26 | PROVIDERS: ATTEND Orthopaedic Surgery | DX: M25.561 Pain in right knee (principal) ==

== ENCOUNTER → 2022-02-07 | Outpatient (CLI) | payer OTHER | LOC: M RAD 08:00 | PROVIDERS: ATTEND Orthopaedic Surgery | DX: M25.561 Pain in right knee (principal) | CPT/HCPCS: 78315; A9503 ==

== ENCOUNTER → 2023-06-02 | Outpatient (CLI) | payer MEDICAID, MEDICARE, OTHER | LOC: M RAD 07:01 | PROVIDERS: ATTEND Orthopaedic Surgery | DX: M25.561 Pain in right knee (principal); G89.29 Other chronic pain; T84.84XA Pain due to internal orthopedic prosthetic devices, implants and grafts, initial encounter; Z96.651 Presence of right artificial knee joint; R93.7 Abnormal findings on diagnostic imaging of other parts of musculoskeletal system | CPT/HCPCS: 78315; A9503 ==

== ENCOUNTER → 2025-05-03 | Outpatient (CLI) | payer OTHER ==
[~2025-05-03] MED LIST changes: -FLOM0.4C39 PO; +TAMS-18 PO
== END ==
LOC: M RAD 11:56
PROVIDERS: ATTEND Nurse Practitioner Family
DX: E07.89 Other specified disorders of thyroid (principal)